=== PATIENT | male | born 1975 | race Caucasian/White ===

== ENCOUNTER 2017-09-08 01:06 | Emergency (ER) | payer OTHER ==
[~2017-09-08] VITALS: Ht 185.4 cm; Wt 118.7 kg
[~2017-09-08 01:06] MED LIST: CIPR-255 PO; LEVE500T PO; LISI10TA PO
[2017-09-08 01:11] VITALS: TEMP 37; Ht 185.4 cm; Wt 118.7 kg
[2017-09-08] MEDS ORDERED: ASPITAB71 PO (01:47)
[2017-09-08] MEDS ORDERED: PHEN-622 PO (01:48)
[2017-09-08] MEDS ORDERED: IBUP-103 PO (01:49)
[2017-09-08] MEDS ORDERED: KETOROLAC TROMETHAMINE 60 MG/2 ML VIAL IM STA (02:28)
[2017-09-08] MEDS ORDERED: BENZONATATE 100MG CAP PO ONE (02:30)
[2017-09-08 03:00] LABS: INFLUENZA B ANTIGEN Neg for Influ B (NEG)
[2017-09-08] MEDS ORDERED: HYDROCODONE/HOMATROPINE SYRUP 5MG/1.5MG 5ML UDP PO STA (03:48)
[2017-09-08] MEDS ORDERED: AZITHROMYCIN 250 MG TAB PO STA (03:48)
[2017-09-08] MEDS ORDERED: HYDR5SYP11 PO (03:51)
[2017-09-08] MEDS ORDERED: AZIT250T PO (03:51)
[2017-09-08 04:01] VITALS: BP 150/81; PULSE 90; O2SAT 93
--- NOTE | 2017-09-08 06:05 | DIAGNOSTIC IMAGING REPORT ---
CHEST 2 VIEWS ROUTINE CLINICAL HISTORY: eval for cough fever. Cough. COMPARISON STUDY: 12/22/2015 FINDINGS: The bones soft tissues and hemidiaphragms are normal. The cardiomediastinal silhouette is normal. The lungs are clear. The pulmonary vasculature is normal. IMPRESSION: Negative chest. The above report was generated using voice recognition software. It may contain grammatical, syntax or spelling errors. Electronically signed by: Chris Stout M.D. 09/08/2017 6:04 AM Dictated Date/Time: 09/08/2017 6:03 AM
--- NOTE | 2017-09-08 07:05 | EMERGENCY ROOM VISIT NOTE ---
History Report prepared by Bonnie: Ruthann Zapata Under the Supervision of: Dr. Bambi Parekh D.O. First contact with patient: 01:41 Chief Complaint: ILLNESS Stated Complaint: SEVERE HEADACHE,TEMP History of Present Illness The patient is a 41 year old male who presents to the Emergency Room with complaints of worsening illness starting 6 days ago. The patient states that he has a cough and has not been able to sleep more than an hour at a time because of it. He complains of headache, sore throat, and a fever. He notes that he has had it as high as 101 and has been taking Advil for it. He reports that he has febrile seizures and wants to make sure it stays down. He notes that he has used ice packs on his shoulders to help as well. The patient notes that he has had swollen feet. He notes that he has had pneumonia and bronchitis years ago. He states that this feels similar to when he had strep throat. The patient denies leg cramping and getting the flu vaccine. He notes that he was a smoker and has been free of it for 2 weeks. The patient notes a history of diverticulitis and hypertension. Source of History: patient Onset: 6 days ago Position: other (global) Quality: other (illness) Timing: worsening Associated Symptoms: + fevers, + headache, + sorethroat, + cough Note: The patient complains of swollen feet. The patient denies leg cramping. Review of Systems See HPI for pertinent positives & negatives. A total of 10 systems reviewed and were otherwise negative. Past Medical & Surgical Medical Problems: (1) Atypical syncope (2) Bipolar 1 disorder (3) Calculus of kidney and ureter (4) Depressive Disorder Nec (5) Diverticular disease of colon (6) Diverticulitis of colon (7) Dyslipidemia (8) Essential hypertension (9) Febrile Convulsions (Simple), Unspecified (10) Hypertension (11) Seizures Surgical Problems: (1) H/O oral surgery (2) s/p phlebectomy varicose vein RLE Family History Cardiac disorder GRANDMOTHER Social History Smoking Status: Former Smoker Alcohol Use: occasionally Drug Use: none Marital Status: Housing Status: lives with family Occupation Status: employed Current/Historical Medications Scheduled Aspirin Effervescent ([place]illian-[place]), 1 TAB PO BID Azithromycin (Zithromax), 250 MG PO DAILY Hydrocodone W/ Homatropine (Hycodan 5/1.5MG 5 Ml), 10 ML PO Q6 Ibuprofen Tab (Advil), 400 MG PO BID Lisinopril (Prinivil), 10 MG PO DAILY Etyrujrocvvzs-Wg-Vv W/ Apap (Vicks Dayquil Severe Cold), 1 TAB PO BID Allergies Coded Allergies: No Known Allergies (Verified , 11/28/16) Physical Exam Vital Signs Date Time Temp Pulse Resp B/P (MAP) Pulse Ox O2 Delivery O2 Flow Rate FiO2 09/08/17 04:01 90 16 150/81 93 09/08/17 01:11 37.0 89 16 172/98 97 Room Air Physical Exam HEENT: Head - normocephalic and atraumatic Pupils are equal, round, and reactive to light. Extraocular eye muscles are intact, and sclera are anicteric. Nose - moist nasal mucosa without discharge. Mouth - moist buccal mucosa. Oropharynx is erythematous and there is no tonsillar exudate or edema noted. Neck: Supple; no JVD, nuchal rigidity, cervical lymphadenopathy. Heart: Regular rate and rhythm. There is a normal S1 and S2 with no murmurs, clicks, or gallops appreciated. Lungs: Clear to auscultation bilaterally with no wheezes, rales, or rhonchi. Abdomen: Soft, completely nontender, nondistended, with good bowel sounds. There are no palpable pulsatile masses or hepatosplenomegaly. There is no guarding, rigidity, or rebound noted. Extremities: No evidence of cyanosis, clubbing, or edema. There are easily palpable peripheral pulses. Skin: warm and dry with good turgor and no rashes. Medical Decision & Procedures ER Provider Diagnostic Interpretation: CHEST X-RAY: The results were interpreted by me. No obvious pulmonary infiltrate or consolidation. Moderate peribronchial cuffing. Laboratory Results Test 09/08/17 01:40 Influenza Type A Antigen Neg for Influ A (NEG) Influenza Type B Antigen Neg for Influ B (NEG) Laboratory results per my review. Medications Administered Medications (Trade) Dose Ordered Sig/Ananya Route Start Time Stop Time Status Last Admin Dose Admin Benzonatate (Tessalon Perles Cap) 100 mg NOW ONCE PO 09/08/17 02:30 09/08/17 02:32 DC 3/17/18 02:48 100 MG Ketorolac Tromethamine (Toradol Inj) 60 mg NOW STAT IM 09/08/17 02:28 09/08/17 02:32 DC 09/08/17 02:48 60 MG Azithromycin (Zithromax Tab) 500 mg NOW STAT PO 09/08/17 03:48 09/08/17 03:49 DC 09/08/17 03:56 500 MG Hydrocodone Bit/ Homatropine Methylb (Hycodan Syrup) 10 ml NOW STAT PO 09/08/17 03:48 09/08/17 03:49 DC 09/08/17 03:56 10 ML Procedure 0228: Ordered Toradol Inj 60 mg IM. 0230: Ordered Benzonatate 100 mg PO. 0348: Ordered Hycodan Syrup 10 ml PO, Azithromycin 500 mg PO. ED Course 0158: Past medical records reviewed. The patient was evaluated in room A12B. A complete history and physical exam was performed. 0228: Ordered Toradol Inj 60 mg IM. 0230: Ordered Benzonatate 100 mg PO. The patient went for chest x-ray as described above. 0328: I reevaluated the patient and he states that his body aches are minimally improved, but his cough has. He is almost asleep. 0348: Ordered Hycodan Syrup 10 ml PO for the patient to take home with him as he had driven here to the emergency department. He was also given Azithromycin 500 mg PO. 0344: Upon reevaluation, the patient is feeling better. I discussed findings and results with him. He verbalized agreement of the treatment plan. The patient was discharged home. Medical Decision The patient is a 41 year old male who presents to the Emergency Room with complaints of worsening illness starting 6 days ago. Differential diagnoses include influenza, pneumonia, bronchitis, strep throat. LABS: Negative Strep Negative Flu This is a 41-year-old male patient who presents to the emergency department with a persistent illness over the past 6 days. Patient describes having diffuse body aches, sore throat, fever and unrelenting cough. This is kept him from sleeping. O2 saturations were stable. Chest x-ray was unremarkable. Influenza testing was negative. Strep testing was negative. He had moderate relief of the body aches with the Toradol. He was given a prescription for Hycodan to use at home for cough at bedtime and I will start the patient on Zithromax as he does have a productive cough and persistent fever for the past 6 days. I have asked the patient to follow-up with his PCP if the symptoms are persisting through Sunday. If symptoms worsen, he should return here to the ER. [place] Drug Monitoring Program Search Results: no issues identified Medication Reconcilliation Current Medication List: was personally reviewed by me Blood Pressure Screening Patient's blood pressure: Elevated blood pressure Blood pressure disposition: Elevated BP felt to be situational Impression Primary Impression: Bronchitis Scribe Attestation The scribe's documentation has been prepared under my direction and personally reviewed by me in its entirety. I confirm that the note above accurately reflects all work, treatment, procedures, and medical decision making performed by me. Departure Information Dispostion Home / Self-Care Prescriptions Hydrocodone W/ Homatropine (HYCODAN 5/1.5MG 5 ML) 1 Syp Syp 10 ML PO Q6 for Cough, #100 ML Prov: Bambi Parekh D.O. 09/08/17 Azithromycin (ZITHROMAX) 250 Mg Tab 250 MG PO DAILY, #4 TAB Prov: Bambi Parekh D.O. 09/08/17 Referrals Bob Fischer M.D. (PCP) Forms HOME CARE DOCUMENTATION FORM, IMPORTANT VISIT INFORMATION, WORK / SCHOOL INSTRUCTIONS Patient Instructions My [facility] Additional Instructions Rest. Take zithromax daily for next 4 days. Hycodan - 10ml every 6 hours for cough. this is a narcotic and can become addictive. Do not drive while taking this med. Return to the ER for worsening symptoms. Follow up on Sunday with the PCP for a recheck if symptoms persist
== END 2017-09-08 04:03 | disposition home or self-care (01) ==
LOC: C.EDB 01:07 → C.EDA 04:03
DX: J40 Bronchitis, not specified as acute or chronic (principal); Z87.01 Personal history of pneumonia (recurrent); I10 Essential (primary) hypertension; Z87.442 Personal history of urinary calculi; Z87.891 Personal history of nicotine dependence; Z98.818 Other dental procedure status; Z98.890 Other specified postprocedural states; Z79.899 Other long term (current) drug therapy

== ENCOUNTER 2017-09-12 10:23 | Emergency (ER) | payer OTHER ==
[~2017-09-12] VITALS: Ht 185.4 cm; Wt 115.3 kg
[~2017-09-12 10:23] MED LIST changes: +ASPITAB71 PO; +AZIT250T PO; -CIPR-255 PO; +HYDR5SYP11 PO; +IBUP-103 PO; -LEVE500T PO; +PHEN-622 PO
[2017-09-12 10:29] VITALS: TEMP 37.2; Ht 185.4 cm; Wt 115.3 kg
[2017-09-12] MEDS ORDERED: METRONIDAZOLE 500MG / 100ML NSS IV STA (10:55)
[2017-09-12] MEDS ORDERED: MoRPHine SULFATE 10 MG/ML CARP/VIAL IV STA (10:55)
[2017-09-12] MEDS ORDERED: CIPROFLOXACIN 400MG / 200ML D5W IV STA (10:55)
[2017-09-12] MEDS ORDERED: ONDANSETRON INJ 2 MG/ML 2 ML VIAL IV STA (10:55)
[2017-09-12] MEDS ORDERED: SODIUM CHLORIDE 0.9% 1000ML 1,000 ML IV STA (10:55)
[2017-09-12] MEDS ORDERED: METRONIDAZOLE 250 MG TAB PO STA (10:57)
[2017-09-12] MEDS ORDERED: CIPROFLOXACIN 250 MG TAB PO ONE (11:00)
[2017-09-12 11:09] LABS: BASO % 0.3 %; BASO ABS # 0.03 K/uL (0-0.2); EOS % 0.9 %; EOS ABS # 0.09 K/uL (0-0.5); HEMATOCRIT 40.9 % (42-52); HEMOGLOBIN 14.7 g/dL (14.0-18.0); IG# 0.02 K/uL (0.00-0.02); LYMPH % 17.9 %; LYMPH ABS # 1.77 K/uL (1.2-3.4); MEAN CELL VOLUME 83.3 fL (80-100); MEAN CORPUSCULAR HEMOGLOBIN 29.9 pg (25-34); MEAN CORPUSCULAR HGB CONC 35.9 g/dl (32-36); MEAN PLATELET VOLUME 8.9 fL (7.4-10.4); MONO % 7.9 %; MONO ABS # 0.78 K/uL (0.11-0.59); NEUT % 72.8 %; NEUT ABS # 7.22 K/uL (1.4-6.5); PLATELET COUNT 176 K/uL (130-400); RED CELL DISTRIBUTION WIDTH CV 12.7 % (11.5-14.5); RED CELL DISTRIBUTION WIDTH SD 38.6 fL (36.4-46.3); WHITE BLOOD COUNT 9.91 K/uL (4.8-10.8)
[2017-09-12 11:30] LABS: ALBUMIN 3.9 gm/dl (3.4-5.0); CREATININE 0.83 mg/dl (0.60-1.40); POTASSIUM 3.9 mmol/L (3.5-5.1)
--- NOTE | 2017-09-12 11:33 | DIAGNOSTIC IMAGING REPORT ---
KUB CLINICAL HISTORY: Left lower quadrant abdominal pain COMPARISON STUDY: CT scan dated 11/29/2016 FINDINGS: There is a 2.5 mm calcification projected over the lower pole the left kidney possibly representing a calculus. There is no pathologic bowel dilatation. Multiple pelvic basin calcifications while nonspecific likely represent phleboliths. IMPRESSION: 1. Left-sided nephrolithiasis 2. No pathologic bowel dilatation 3. Pelvic basin calcifications, likely representing phleboliths. Electronically signed by: Pete Adams M.D. 09/12/2017 11:31 AM Dictated Date/Time: 09/12/2017 11:30 AM
[2017-09-12 11:37] LABS: TOTAL PROTEIN 7.4 gm/dl (6.4-8.2)
[2017-09-12] MEDS ORDERED: DICYCLOMINE HCL 20 MG TAB PO STA (12:20)
[2017-09-12] MEDS ORDERED: TRAMADOL HCL 50 MG TAB PO STA (12:20)
--- NOTE | 2017-09-12 12:22 | EMERGENCY ROOM VISIT NOTE ---
History Report prepared by Bonnie: Nba Wang Under the Supervision of: Dr. Anupam Davenport M.D. 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 Left sided abd pain, diarrhea, nausea. Pt states, "I know I have diverticulitis. I was sent over by Dr. Beauchamp for IV abx." History of Present Illness The patient is a 41 year old white male with a past medical history of bipolar disorder, kidney stone, depression, diverticulitis, HLD, HTN, and seizure who presents to the ED with a cc of constant left sided abdominal pain beginning yesterday. Patient believes he has diverticulitis, and states that he was sent to the ED for IV antibiotics. He has a history of frequent diverticulitis, and has not had a bout in about five months. Pain is improved with sitting in certain positions. Had a small bowel movement earlier today. Positive fevers, chills, nausea. Negative vomiting, bloody stool. Patient has had prior colonoscopies. 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 Source of History: patient Onset: Yesterday Position: abdomen (left sided) Timing: constant Modifying Factors (Relieving): other (sitting in certain positions) Associated Symptoms: + fevers, + chills, + nausea, No vomiting, No hematochezia Review of Systems See HPI for pertinent positives and negatives. A total of ten systems were reviewed and were otherwise negative. Past Medical & Surgical Medical Problems: (1) Atypical syncope (2) Bipolar 1 disorder (3) Calculus of kidney and ureter (4) Depressive Disorder Nec (5) Diverticular disease of colon (6) Diverticulitis of colon (7) Dyslipidemia (8) Essential hypertension (9) Febrile Convulsions (Simple), Unspecified (10) Hypertension (11) Seizures Surgical Problems: (1) H/O oral surgery (2) s/p phlebectomy varicose vein RLE Family History Cardiac disorder GRANDMOTHER Social History Smoking Status: Former Smoker Alcohol Use: occasionally Drug Use: none Marital Status: Housing Status: lives with family Occupation Status: employed Current/Historical Medications Scheduled Aspirin Effervescent (Jillian-[place]), 1 TAB PO BID Azithromycin (Zithromax), 250 MG PO DAILY Ciprofloxacin Hcl (Cipro), 500 MG PO BID Dicyclomine Hcl (Bentyl), 1 CAP PO TID Ibuprofen Tab (Advil), 400 MG PO BID Lisinopril (Prinivil), 10 MG PO DAILY Metronidazole (Flagyl), 500 MG PO TID Equgnhdqpkaou-Tj-Db W/ Apap (Vicks Dayquil Severe Cold), 1 TAB PO BID Scheduled PRN Ondansetron Hcl (Zofran), 1 TAB PO Q4H PRN for Nausea Allergies Coded Allergies: No Known Allergies (Verified , 11/28/16) Physical Exam Vital Signs Date Time Temp Pulse Resp B/P (MAP) Pulse Ox O2 Delivery O2 Flow Rate FiO2 09/12/17 12:30 73 18 127/65 98 Room Air 09/12/17 11:57 73 18 128/71 98 Room Air 09/12/17 11:12 76 18 118/63 96 Room Air 09/12/17 10:29 37.2 82 16 154/82 95 Room Air Physical Exam GENERAL: Awake, alert, well-appearing, NAD HENT: Normocephalic, atraumatic. EYES: Normal conjunctiva. Sclera non-icteric. NECK: Supple. No nuchal rigidity. FROM. RESPIRATORY: CTAB, no rhonchi, wheezing, crackles CARDIAC: RRR, no MRG ABDOMEN: Soft, ND, BS+. LLQ tenderness. Suprapubic discomfort. MSK: No chest wall TTP, no LE edema NEURO: GCS 15, CN 2-12 intact, moves all 4s on command SKIN: No rash or jaundice noted. Medical Decision & Procedures ER Provider Diagnostic Interpretation: Radiology results as stated below per my review and radiologist interpretation: KUB FINDINGS: There is a 2.5 mm calcification projected over the lower pole the left kidney possibly representing a calculus. There is no pathologic bowel dilatation. Multiple pelvic basin calcifications while nonspecific likely represent phleboliths. IMPRESSION: 1. Left-sided nephrolithiasis 2. No pathologic bowel dilatation 3. Pelvic basin calcifications, likely representing phleboliths. Electronically signed by: Pete Adams M.D. 09/12/2017 11:31 AM Laboratory Results 09/12/17 11:00 Red Blood Count 4.91, Mean Corpuscular Volume 83.3, Mean Corpuscular Hemoglobin 29.9, Mean Corpuscular Hemoglobin Concent 35.9, Mean Platelet Volume 8.9, Neutrophils (%) (Auto) 72.8, Lymphocytes (%) (Auto) 17.9, Monocytes (%) (Auto) 7.9, Eosinophils (%) (Auto) 0.9, Basophils (%) (Auto) 0.3, Neutrophils # (Auto) 7.22, Lymphocytes # (Auto) 1.77, Monocytes # (Auto) 0.78, Eosinophils # (Auto) 0.09, Basophils # (Auto) 0.03 09/12/17 11:00 Test 09/12/17 11:00 White Blood Count 9.91 K/uL (4.8-10.8) Red Blood Count 4.91 M/uL (4.7-6.1) Hemoglobin 14.7 g/dL (14.0-18.0) Hematocrit 40.9 % (42-52) Mean Corpuscular Volume 83.3 fL (80-100) Mean Corpuscular Hemoglobin 29.9 pg (25-34) Mean Corpuscular Hemoglobin Concent 35.9 g/dl (32-36) Platelet Count 176 K/uL (130-400) Mean Platelet Volume 8.9 fL (7.4-10.4) Neutrophils (%) (Auto) 72.8 % Lymphocytes (%) (Auto) 17.9 % Monocytes (%) (Auto) 7.9 % Eosinophils (%) (Auto) 0.9 % Basophils (%) (Auto) 0.3 % Neutrophils # (Auto) 7.22 K/uL (1.4-6.5) Lymphocytes # (Auto) 1.77 K/uL (1.2-3.4) Monocytes # (Auto) 0.78 K/uL (0.11-0.59) Eosinophils # (Auto) 0.09 K/uL (0-0.5) Basophils # (Auto) 0.03 K/uL (0-0.2) RDW Standard Deviation 38.6 fL (36.4-46.3) RDW Coefficient of Variation 12.7 % (11.5-14.5) Immature Granulocyte % (Auto) 0.2 % Immature Granulocyte # (Auto) 0.02 K/uL (0.00-0.02) Anion Gap 7.0 mmol/L (3-11) Est Creatinine Clear Calc Drug Dose 154.2 ml/min Estimated GFR () 125.8 Estimated GFR (Non- 108.5 BUN/Creatinine Ratio 20.5 (10-20) Calcium Level 9.0 mg/dl (8.5-10.1) Total Bilirubin 0.7 mg/dl (0.2-1) Direct Bilirubin 0.1 mg/dl (0-0.2) Aspartate Amino Transf (AST/SGOT) 19 U/L (15-37) Alanine Aminotransferase (ALT/SGPT) 37 U/L (12-78) Alkaline Phosphatase 74 U/L (45-117) Total Protein 7.4 gm/dl (6.4-8.2) Albumin 3.9 gm/dl (3.4-5.0) Lipase 144 U/L (73-393) Laboratory results reviewed by me Medications Administered Medications (Trade) Dose Ordered Sig/Ananya Route Start Time Stop Time Status Last Admin Dose Admin Sodium Chloride 1,000 ml @ 999 mls/hr Q1H1M STAT IV 09/12/17 10:55 09/12/17 11:55 DC 09/12/17 11:12 999 MLS/HR Ondansetron HCl (Zofran Inj) 4 mg NOW STAT IV 09/12/17 10:55 09/12/17 10:57 DC 09/12/17 11:11 4 MG Morphine Sulfate (MoRPHine SULFATE INJ) 8 mg NOW STAT IV 09/12/17 10:55 09/12/17 10:57 DC 09/12/17 11:12 8 MG Ciprofloxacin (Ciprofloxacin Tab) 500 mg NOW ONCE PO 09/12/17 11:00 09/12/17 11:01 DC 09/12/17 11:10 500 MG Metronidazole (Flagyl Tab) 500 mg NOW STAT PO 09/12/17 10:57 09/12/17 10:59 DC 09/12/17 11:11 500 MG Tramadol HCl (Ultram Tab) 50 mg NOW STAT PO 09/12/17 12:20 09/12/17 12:31 DC 09/12/17 12:30 50 MG Dicyclomine HCl (Bentyl Tab) 20 mg ONE STAT PO 09/12/17 12:20 09/12/17 12:31 DC 09/12/17 12:40 20 MG ED Course 1038: The patient was evaluated in room C3. A complete history and physical exam was performed. 1220: I reevaluated the patient. Discussed results and discharge instructions: he verbalized understanding and agreement. The patient is ready for discharge. Medical Decision The patient is a 41 year old white male with a past medical history of bipolar disorder, kidney stone, depression, diverticulitis, HLD, HTN, and seizure who presents to the ED with a cc of constant left sided abdominal pain beginning yesterday. Differential diagnosis: Etiologies such as appendicitis, diverticulitis, PUD, biliary pathology, UTI, pancreatitis, obstruction, mesenteric ischemia, aortic pathology, infections, inflammatory bowel disease, renal colic, as well as others were entertained. Prior records reviewed. Patient seen and evaluated at bedside. Patient did state that he has some left lower quadrant discomfort. Patient did have a reported fever at home. Patient states that he does have a history of diverticulitis confirmed on colonoscopy. Patient denies any history of ulcerative colitis or Crohn's disease. Patient has a mild left lower quadrant discomfort and suprapubic pain. Patient does not appear acutely septic. Patient did have blood work completed along with IV fluids and pain control. She was also given Cipro and Flagyl p.o. patient's blood work was fairly unremarkable. White blood cell count was in within normal limits no left shift. Patient did have plain film completed which does not show any overt bowel obstruction. No evidence of free air. I do not believe that the patient requires further imaging. We will treat presumptively based on the patient's history and physical exam for diverticulitis. Patient was given warning signs which to return. Patient was deemed suitable for outpatient follow-up and treatment at this time. Patient was given strict follow-up, discharge, and return precautions. All questions were answered. Patient was deemed suitable for outpatient follow-up at this time. Patient agreed with the plan of care and was safely discharged home. Medication Reconcilliation Current Medication List: was personally reviewed by me Blood Pressure Screening Patient's blood pressure: Normal blood pressure Blood pressure disposition: Did not require urgent referral Impression Primary Impression: Diverticulitis of colon Additional Impressions: Abdominal pain Encounter for smoking cessation counseling Scribe Attestation The scribe's documentation has been prepared under my direction and personally reviewed by me in its entirety. I confirm that the note above accurately reflects all work, treatment, procedures, and medical decision making performed by me. Departure Information Dispostion Home / Self-Care Prescriptions Dicyclomine Hcl (BENTYL) 10 Mg Cap 1 CAP PO TID for 7 Days, #21 CAP 3 Refills Prov: Anupam Davenport M.D. 09/12/17 Ondansetron Hcl (ZOFRAN) 4 Mg Tab 1 TAB PO Q4H Y for Nausea for 3 Days, #20 TAB 2 Refills Prov: Anupam Davenport M.D. 09/12/17 Metronidazole (FLAGYL) 500 Mg Tab 500 MG PO TID for 10 Days, #30 TAB Prov: Anupam Davenport M.D. 09/12/17 Ciprofloxacin Hcl (CIPRO) 500 Mg Tab 500 MG PO BID for 10 Days, #20 TAB Prov: Anupam Davenport M.D. 09/12/17 Referrals No Doctor, Assigned (PCP) Patient Instructions Diverticulitis Josh, My [facility] Additional Instructions Please return to the emergency department if you have worsening or recurrent symptoms not amenable to at-home treatment. Please call for a follow-up appointment with her primary care physician. Please take your medications as prescribed. If you have other concerns and/or complaints please feel free to also call your primary care physician's office or return the ED for further evaluation, management, and treatment. You received narcotic or benzodiazepene medication while in the emergency room today. This is an addictive medication that may cause drowziness as well as constipation. Do not drive, operate heavy machinery, or drink alcohol under the influence of this medication. You may take 600 mg Ibuprofen every 6 hours as needed for pain with food for no more than 2 consecutive days. You may take tylenol 1000 mg every 6 hours as needed for pain. You may take motrin and tylenol separately or at the same time. Take your medications as prescribed. If taking an antibiotic consider taking a probiotic and/or eating yogurt, but at the least, please take with food as it can cause upset stomach. Avoid alcohol while you take Flagyl. Please follow-up with your enrollment services vice president. You have been examined and treated today on an emergency basis only. This is not a substitute for, or an effort to provide, complete comprehensive medical care. It is impossible to recognize and treat all injuries or illnesses in a single emergency department visit. It is therefore important that you follow up closely with [facility], your PCP, and/or your specialist(s). Call as soon as possible for an appointment. Thank you for your time and consideration. I look forward to speaking with you again soon. Please don't hesitate to call us if you have any questions. Problem Qualifiers Additional Impressions: Abdominal pain Abdominal location: left lower quadrant Qualified Codes: R10.32 - Left lower quadrant pain
[2017-09-12] MEDS ORDERED: CIPR-255 PO (12:28)
[2017-09-12] MEDS ORDERED: METR500T PO (12:28)
[2017-09-12] MEDS ORDERED: DICY10CA55 PO (12:28)
[2017-09-12] MEDS ORDERED: ONDA4TAB65 PO (12:28)
[2017-09-12 12:30] VITALS: BP 127/65; PULSE 73; O2SAT 98
== END 2017-09-12 12:43 | disposition home or self-care (01) ==
LOC: C.EDB 10:26 → C.EDC 12:43
DX: K57.32 Diverticulitis of large intestine without perforation or abscess without bleeding (principal); R10.30 Lower abdominal pain, unspecified; N20.0 Calculus of kidney; I10 Essential (primary) hypertension; F31.9 Bipolar disorder, unspecified; G40.909 Epilepsy, unspecified, not intractable, without status epilepticus; Z87.891 Personal history of nicotine dependence; Z79.899 Other long term (current) drug therapy

== ENCOUNTER 2017-10-15 05:25 | Inpatient (IN) | payer OTHER ==
[2017-10-09 11:21] VITALS: BMI 33.0
--- NOTE | 2017-10-09 12:02 | PAT Medication Instructions ---
Service Date Oct 09, 2017. Current Home Medication List Ibuprofen Tab (Advil), 400 MG PO BID PRN for Pain Lisinopril (Prinivil), 10 MG PO QAM Multivitamin (Multivitamin), 1 TAB PO QAM Omeprazole (Prilosec), 20 MG PO DAILY PRN for Heartburn Ondansetron Hcl (Zofran), 1 TAB PO Q4H PRN for Nausea Medication Instructions For Your Scheduled Surgery -Check with your surgeon for instructins for: Ibuprofen Tab (Advil), 400 MG PO BID PRN for Pain - Hold the following medications the morning of surgery: Lisinopril (Prinivil), 10 MG PO QAM Multivitamin (Multivitamin), 1 TAB PO QAM - Take the following medications the morning of surgery with a sip of water: Omeprazole (Prilosec), 20 MG PO DAILY PRN for Heartburn (if needed) Ondansetron Hcl (Zofran), 1 TAB PO Q4H PRN for Nausea (if needed) - Take the following medications as scheduled the night before surgery: Omeprazole (Prilosec), 20 MG PO DAILY PRN for Heartburn (if needed) Ondansetron Hcl (Zofran), 1 TAB PO Q4H PRN for Nausea (if needed) If you have any questions please call us at [phone] or [phone] or [phone]
[~2017-10-15] VITALS: Ht 185.4 cm; Wt 114.7 kg
[2017-10-15] VITALS (9 sets, daily range): BP systolic 126–159; BP diastolic 75–100; PULSE 67–99; TEMP 36.4–36.8; O2SAT 92–98; BMI 33.0
[~2017-10-15 05:25] MED LIST changes: -ASPITAB71 PO; -AZIT250T PO; -HYDR5SYP11 PO; +MULT-506 PO; +ONDA4TAB65 PO; -PHEN-622 PO; +PRLSR20 PO
[2017-10-15] MEDS ORDERED: LACTATED RINGER'S 1000ML 1,000 ML IV SCH (06:00)
[2017-10-15] MEDS ORDERED: CIPROFLOXACIN / D5W 400 MG IV SCH (06:00)
[2017-10-15] MEDS ORDERED: METRONIDAZOLE 500MG / NSS IV SCH (06:00)
[2017-10-15] MEDS ORDERED: MIDAZOLAM HCL 1 MG/ML 2ML VIAL ONE (07:29)
[2017-10-15] MEDS ORDERED: FENTANYL CITRATE INJ 50 MCG/1 ML 2 ML VIAL ONE ×3 (07:31→10:12)
[2017-10-15] MEDS ORDERED: PROPOFOL IV EMULSION 10 MG/ML 20 ML VIAL IV ONE ×2 (07:32→09:13)
[2017-10-15] MEDS ORDERED: LIDOCAINE HCL 1% 20 ML VIAL ONE (07:47)
[2017-10-15] MEDS ORDERED: BUPIVACAINE 0.5 % 5 MG/1 ML MPF 30ML VIAL ONE (07:47)
[2017-10-15] MEDS ORDERED: BACITRACIN OINT 15 GM TUBE ONE (07:47)
--- NOTE | 2017-10-15 08:06 | History & Physical Bridge Note ---
H&P Re-Evaluation Bridge Note: I have examined the patient, reviewed the History & Physical and in the interval since the performance of the History & Physical I have noted the following changes of clinical significance: No changes noted
[2017-10-15] MEDS ORDERED: METRONIDAZOLE 500MG / 100ML NSS IV STA (08:07)
[2017-10-15] MEDS ORDERED: ATROPINE SULFATE 0.1 MG/ML 5ML SYR IV PRN (08:15)
[2017-10-15] MEDS ORDERED: ONDANSETRON INJ 2 MG/ML 2 ML VIAL IV PRN (08:15)
[2017-10-15] MEDS ORDERED: EpHEDrine SULFATE INJ 50 MG/ML AMP IV PRN (08:15)
[2017-10-15] MEDS ORDERED: PHENYLEPHRINE 100MCG/ML 5ML SYR IV PRN (08:15)
[2017-10-15] MEDS ORDERED: MEPERIDINE HCL 25 MG/ML CARP IV PRN (08:15)
[2017-10-15] MEDS ORDERED: LABETALOL HCL IV 5 MG/ML 20ML IV PRN (08:15)
[2017-10-15] MEDS ORDERED: NALOXONE HCL 0.4 MG/1 ML VIAL/CARP IV PRN (08:15)
[2017-10-15] MEDS ORDERED: FLUMAZENIL 0.1 MG/1 ML 10 ML VIAL IV PRN (08:15)
[2017-10-15] MEDS ORDERED: DEXAMETHASONE SOD INJ 4 MG/ML VIAL ONE (09:13)
[2017-10-15] MEDS ORDERED: LIDOCAINE HCL 2% 2 ML VIAL (20MG/ML) ONE (09:13)
[2017-10-15] MEDS ORDERED: ONDANSETRON INJ 2 MG/ML 2 ML VIAL ONE (09:13)
[2017-10-15] MEDS ORDERED: ROCURONIUM BROMIDE 10 MG/ML 5 ML VIAL IV ONE ×2 (09:13→09:23)
[2017-10-15] MEDS ORDERED: NEOSTIGMINE METHYLSULFATE 5 MG/5 ML SYR ONE ×2 (09:13→09:24)
[2017-10-15] MEDS ORDERED: GLYCOPYRROLATE INJ 0.2 MG/ML VIAL ONE ×2 (09:13→09:24)
--- NOTE | 2017-10-15 11:23 | [facility] Post Operative Brief Note ---
Immediate Operative Summary Operative Date Oct 15, 2017. Pre-Operative Diagnosis Diverticulitis of sigmoid colon Post-Operative Diagnosis Same Procedure(s) Performed Open Sigmoid Colon Resection Surgeon Dr Nagel Physical Therapy Assistant Surgeon(s) Shikha Villanueva PA-C Estimated Blood Loss 30ml Findings Consistent with Post-Op Diagnosis Fluids (cc crystalloids) 2500ml Specimens A. sigmoid colon and donuts Drains JPx1 Anesthesia Type General Complication(s) none Disposition Accompanied Pt To Recover: yes Disposition: Recovery Room / PACU
[2017-10-15] MEDS ORDERED: ACETAMINOPHEN 325 MG TAB PO PRN (11:30)
[2017-10-15] MEDS: HYDROmorphone INJ 0.5 MG/0.5 ML SYR IV PRN ×6 (11:49→18:44)
[2017-10-15] MEDS: MoRPHine SULFATE 10 MG/ML CARP/VIAL IV PRN ×2 (12:32→12:42)
--- NOTE | 2017-10-15 12:59 | Anesthesiology Progress Note ---
Anesthesia Post Op Note Date & Time Oct 15, 2017 at 12:58 Vital Signs Pain Intensity: 4 Vital Signs Past 12 Hours Date Time Temp Pulse Resp B/P (MAP) Pulse Ox O2 Delivery O2 Flow Rate FiO2 10/15/17 12:55 84 20 155/99 97 Nasal Cannula 4 10/15/17 12:45 90 16 144/94 97 Nasal Cannula 4 10/15/17 12:35 81 20 150/99 96 Nasal Cannula 4 10/15/17 12:25 36.5 85 16 149/100 100 Nasal Cannula 4 10/15/17 12:15 95 16 152/90 100 Nasal Cannula 4 10/15/17 12:05 84 16 152/96 100 Oxymask 10 10/15/17 11:45 84 16 148/68 100 Oxymask 10 10/15/17 11:38 36.3 107 16 164/102 98 Oxymask 10 10/15/17 05:55 36.6 67 18 144/95 97 Room Air Notes Mental Status: alert / awake / arousable, participated in evaluation Pt Amnestic to Procedure: Yes Nausea / Vomiting: adequately controlled Pain: adequately controlled Airway Patency, RR, SpO2: stable & adequate BP & HR: stable & adequate Hydration State: stable & adequate Anesthetic Complications: no major complications apparent
[2017-10-15] MEDS: D5W AND 1/2NSS + 20MEQ KCL 1,000 ML IV SCH (14:15)
--- NOTE | 2017-10-15 14:45 | OPERATIVE REPORT ---
DATE OF OPERATION: 10/15/2017 PREOPERATIVE DIAGNOSIS: Sigmoid colon diverticulitis. POSTOPERATIVE DIAGNOSIS: Same. OPERATION: Sigmoid colon resection. SURGEON: Dr. Breonna Nagel. ANESTHESIA: General. GENERAL FORECASTER: Shikha Villanueva PA-C IV FLUIDS: 2500 mL. ESTIMATED BLOOD LOSS: About 30 mL. FINDINGS: Sigmoid colon diverticulitis. COMPLICATIONS: None. INDICATIONS FOR THE PROCEDURE: This is a 41-year-old gentleman who presented three times with acute sigmoid colon diverticulitis and the patient will be required to do the sigmoid colon resection. I did talk to the patient about the benefit and risk, alternate procedure. I indicated the risks may include but not limited such as bleeding, infection, anastomosis leak, sepsis, abscess, incisional hernia recurrence, myocardial infarction, DVT, stroke, and even . The patient understands. He signed informed consent and I answered all questions. He agreed to proceed with procedure. DETAILS OF PROCEDURE: We brought the patient to the OR, put the patient in the supine position. The patient received SCD on bilateral legs to prevent DVT. Also, the patient received 400mg Cipro and 500mg Flagyl for prophylactic antibiotic and the patient received general anesthesia without difficulty. Then, we put the patient in lithotomy position. The patient also received Hunter catheter inserted and the abdomen was prepped and draped in routine sterile fashion. After time out, I made a midline incision into the abdomen without difficulty. Then we found out the patient has some inflammation and edema on the sigmoid colon. We mobilized the sigmoid colon laterally and medially. We used 50 mm TIA staple transection of the distal sigmoid colon near the rectum and then I made a window on the mesentery near the descending sigmoid colon and used a EKATERINA staple transection of the colon. Then I used endovascular staple to take down the mesentery. Rechecked, no active bleeding, no leak on the bowel and then I mobilized the splenic flexure of the colon and gives anastomosis. I opened the distal colon and put the 28 mm navail in. I used #2-0 Prolene suture navail intact. First, we used a 25 dilator and dilated the rectum and then used a 29 mm and dilated the rectum. Then I passed the 28 mm EKATERINA stapler and did anastomosis and anastomosis was done easily. No tension and good blood circulation and we used normal saline over the anastomosis and inflated air. No active leak. No leak sign. Then, we suctioned all fluid out. We closed the mesenteric defect by using 2-0 Vicryl interruptedly and hemostasis obtained. Then, I closed. Before we closed, we put the 10 mm MARY drainage in the abdomen. Then, we used a #1 PDS, closed the fascial layer with continuous running, closed subcutaneous layer by using 2-0 Vicryl continuous running, closed the skin by using staple, then we put the dressing on. The patient tolerated the procedure well. All the instrument, needle and sponge counts were correct x2 at the end of the case. The patient transferred to recovery room in stable condition. After procedure, I did talk to the patient and family member about the OR finding and procedure we did. She understands. Also, the specimen sent to pathology. After we did anastomosis, we checked the colon with the two ring and are intact. Also, we sent them to pathology. I attest to the content of the Intraoperative Record and any orders documented therein. Any exceptions are noted below. LISETTE
[2017-10-15] MEDS: MoRPHine SULFATE 4 MG/ML 1 ML CARP\\VIAL IV PRN ×2 (15:27→21:50)
[2017-10-15] MEDS: ONDANSETRON INJ 2 MG/ML 2 ML VIAL IV PRN ×2 (15:33→20:25)
[2017-10-15] MEDS: METRONIDAZOLE / NSS 500 MG in PREMIXED NSS 0 ML IV SCH (15:34)
[2017-10-15] MEDS ORDERED: NURSING VERBAL MED ORDER ONE ×2 (17:00)
[2017-10-15] MEDS ORDERED: MoRPHine SULFATE 4 MG/ML 1 ML CARP\\VIAL IV ONE (17:00)
[2017-10-15] MEDS: METOCLOPRAMIDE HCL INJ 5 MG/ML 2 ML VIAL IV PRN (17:25)
--- NOTE | 2017-10-15 17:57 | Surgery Progress Note ---
Surgery Progress Note Date of Service Oct 15, 2017. Subjective F/U post op, S/P sigmoid colectomy, pt is stable, pt is still have some incision pain, pt denies vomiting, some nausea, Objective Vital Signs: Date Time Temp Pulse Resp B/P (MAP) Pulse Ox O2 Delivery O2 Flow Rate FiO2 10/15/17 16:10 36.5 93 16 159/89 (112) 97 Room Air 10/15/17 14:58 36.4 99 16 155/99 (117) 97 Room Air 10/15/17 14:20 87 16 150/89 (109) 96 Nasal Cannula 4.0 10/15/17 13:50 36.5 88 20 149/100 (116) 95 Nasal Cannula 2.0 10/15/17 13:20 98 Nasal Cannula 4.0 10/15/17 13:20 36.4 89 16 151/92 (111) 98 Nasal Cannula 4.0 10/15/17 13:20 Nasal Cannula 4.0 10/15/17 13:05 36.5 84 20 143/97 96 Nasal Cannula 2 10/15/17 12:55 84 20 155/99 97 Nasal Cannula 4 10/15/17 12:45 90 16 144/94 97 Nasal Cannula 4 10/15/17 12:35 81 20 150/99 96 Nasal Cannula 4 10/15/17 12:25 36.5 85 16 149/100 100 Nasal Cannula 4 10/15/17 12:15 95 16 152/90 100 Nasal Cannula 4 10/15/17 12:05 84 16 152/96 100 Oxymask 10 10/15/17 11:45 84 16 148/68 100 Oxymask 10 10/15/17 11:38 36.3 107 16 164/102 98 Oxymask 10 10/15/17 05:55 36.6 67 18 144/95 97 Room Air General Appearance: WD/WN, no apparent distress Head: normocephalic Neck: supple, thyroid normal Respiratory/Chest: chest non-tender, lungs clear, normal breath sounds Cardiovascular: regular rate, rhythm, no edema, no gallop, no JVD, no murmur Abdomen: normal bowel sounds, non distended, soft, + tenderness Incision(s): clean, dry, intact Extremities: normal range of motion, non-tender, normal inspection Assessment & Plan I update about or finding and the surgery pt had, pt understood, change morphine 4 mg q2 h prn for pain, resume home medicine, repeat labs in am, will f/U
[2017-10-15] MEDS: CIPROFLOXACIN / D5W 400 MG in PREMIXED IN D5W 200 ML IV SCH (18:16)
[2017-10-16] VITALS (7 sets, daily range): BP systolic 128–154; BP diastolic 76–82; PULSE 59–81; TEMP 36.5–36.9; O2SAT 92–99; Ht 185.4 cm; Wt 114.7 kg
[2017-10-16] MEDS: METRONIDAZOLE / NSS 500 MG in PREMIXED NSS 0 ML IV SCH ×2 (00:22→08:24)
[2017-10-16] MEDS: HYDROmorphone INJ 0.5 MG/0.5 ML SYR IV PRN ×3 (00:23→08:25)
[2017-10-16] MEDS: ONDANSETRON INJ 2 MG/ML 2 ML VIAL IV PRN ×6 (00:25→23:48)
[2017-10-16] MEDS: MoRPHine SULFATE 4 MG/ML 1 ML CARP\\VIAL IV PRN ×3 (02:47→15:36)
[2017-10-16] MEDS: D5W AND 1/2NSS + 20MEQ KCL 1,000 ML IV SCH ×2 (04:05→14:07)
[2017-10-16] MEDS ORDERED: NURSING VERBAL MED ORDER ONE (05:00)
[2017-10-16] MEDS ORDERED: CIPROFLOXACIN 400MG / 200ML D5W IV ONE (06:00)
[2017-10-16 06:07] LABS: HEMATOCRIT 38.2 % (42-52); HEMOGLOBIN 13.5 g/dL (14.0-18.0); IG# 0.03 K/uL (0.00-0.02); LYMPH % 16.6 %; LYMPH ABS # 1.35 K/uL (1.2-3.4); MEAN CELL VOLUME 83.8 fL (80-100); MEAN CORPUSCULAR HEMOGLOBIN 29.6 pg (25-34); MEAN CORPUSCULAR HGB CONC 35.3 g/dl (32-36); MEAN PLATELET VOLUME 8.9 fL (7.4-10.4); MONO ABS # 0.81 K/uL (0.11-0.59); NEUT ABS # 5.92 K/uL (1.4-6.5); PLATELET COUNT 255 K/uL (130-400); RED CELL DISTRIBUTION WIDTH CV 12.8 % (11.5-14.5); RED CELL DISTRIBUTION WIDTH SD 38.5 fL (36.4-46.3); WHITE BLOOD COUNT 8.11 K/uL (4.8-10.8)
[2017-10-16] MEDS: CIPROFLOXACIN / D5W 400 MG in PREMIXED IN D5W 200 ML IV SCH ×2 (06:21→18:10)
[2017-10-16 06:39] LABS: ALBUMIN 3.5 gm/dl (3.4-5.0); CALCIUM 8.1 mg/dl (8.5-10.1); CREATININE 0.87 mg/dl (0.60-1.40); POTASSIUM 3.4 mmol/L (3.5-5.1)
[2017-10-16 06:42] LABS: TOTAL PROTEIN 6.7 gm/dl (6.4-8.2)
--- NOTE | 2017-10-16 08:14 | Anesthesiology Progress Note ---
Anesthesia Post Op Note Date & Time Oct 16, 2017 at 08:13 Vital Signs Pain Intensity: 7.0 Vital Signs Past 12 Hours Date Time Temp Pulse Resp B/P (MAP) Pulse Ox O2 Delivery O2 Flow Rate FiO2 10/16/17 02:45 36.6 59 14 133/81 (98) 99 Nasal Cannula 4.0 10/15/17 23:50 93 Room Air 4.0 10/15/17 23:18 36.8 67 14 126/80 (95) 93 Room Air Notes Mental Status: alert / awake / arousable, participated in evaluation Pt Amnestic to Procedure: Yes Nausea / Vomiting: adequately controlled Pain: adequately controlled Airway Patency, RR, SpO2: stable & adequate BP & HR: stable & adequate Hydration State: stable & adequate Anesthetic Complications: no major complications apparent
[2017-10-16] MEDS: METOCLOPRAMIDE HCL INJ 5 MG/ML 2 ML VIAL IV PRN (08:20)
[2017-10-16] MEDS ORDERED: PANTOprazole SOD 40 MG TAB PO PRN (09:00)
[2017-10-16] MEDS: ENOXAPARIN 40 MG/0.4 ML SYR SQ SCH (09:26)
--- NOTE | 2017-10-16 09:35 | Surgery Progress Note ---
Surgery Progress Note Date of Service Oct 16, 2017. Subjective Post OP Day: 1 (s/p ex lap, sigmoid resection with primary anastomosis) + flatus, + pain controlled, No chest pain, No SOB, No bowel movement, No nausea , No vomiting Sore throat from NGT, would really like it removed Hunter catheter removed this am (7 am), has not urinated since but may feel like he needs to soon abdominal pain controlled with pain meds Objective Vital Signs: Date Time Temp Pulse Resp B/P (MAP) Pulse Ox O2 Delivery O2 Flow Rate FiO2 10/16/17 08:15 36.5 63 17 130/76 (94) 98 Nasal Cannula 4.0 10/16/17 02:45 36.6 59 14 133/81 (98) 99 Nasal Cannula 4.0 10/15/17 23:50 93 Room Air 4.0 10/15/17 23:18 36.8 67 14 126/80 (95) 93 Room Air 10/15/17 19:03 36.5 84 16 135/75 (95) 92 Room Air 10/15/17 16:10 36.5 93 16 159/89 (112) 97 Room Air 10/15/17 15:30 Nasal Cannula 4.0 10/15/17 14:58 36.4 99 16 155/99 (117) 97 Room Air 10/15/17 14:20 87 16 150/89 (109) 96 Nasal Cannula 4.0 10/15/17 13:50 36.5 88 20 149/100 (116) 95 Nasal Cannula 2.0 10/15/17 13:20 98 Nasal Cannula 4.0 10/15/17 13:20 36.4 89 16 151/92 (111) 98 Nasal Cannula 4.0 10/15/17 13:20 Nasal Cannula 4.0 10/15/17 13:05 36.5 84 20 143/97 96 Nasal Cannula 2 10/15/17 12:55 84 20 155/99 97 Nasal Cannula 4 10/15/17 12:45 90 16 144/94 97 Nasal Cannula 4 10/15/17 12:35 81 20 150/99 96 Nasal Cannula 4 10/15/17 12:25 36.5 85 16 149/100 100 Nasal Cannula 4 10/15/17 12:15 95 16 152/90 100 Nasal Cannula 4 10/15/17 12:05 84 16 152/96 100 Oxymask 10 10/15/17 11:45 84 16 148/68 100 Oxymask 10 10/15/17 11:38 36.3 107 16 164/102 98 Oxymask 10 Physical Exam: MARY drainage (serosanguineous) General Appearance: WD/WN, no apparent distress Head: normocephalic, atraumatic Neck: trachea midline Respiratory/Chest: no respiratory distress, no accessory muscle use, + wheezing (expiratory) Cardiovascular: regular rate, rhythm, no murmur Abdomen: non distended, soft, no organomegaly, no pulsatile mass, + abnormal bowel sounds (hypoactive bowel sounds), + tenderness (at midline incision and generalized, appropriate post op) Incision(s): clean, dry (dressing clean and dry, some areas of drainage, incision not inspected) Laboratory Results: Results Past 24 Hours Test 10/16/17 05:41 Range/Units White Blood Count 8.11 4.8-10.8 K/uL Red Blood Count 4.56 4.7-6.1 M/uL Hemoglobin 13.5 14.0-18.0 g/dL Hematocrit 38.2 42-52 % Mean Corpuscular Volume 83.8 80-100 fL Mean Corpuscular Hemoglobin 29.6 25-34 pg Mean Corpuscular Hemoglobin Concent 35.3 32-36 g/dl Platelet Count 255 130-400 K/uL Mean Platelet Volume 8.9 7.4-10.4 fL Neutrophils (%) (Auto) 73.0 % Lymphocytes (%) (Auto) 16.6 % Monocytes (%) (Auto) 10.0 % Eosinophils (%) (Auto) 0.0 % Basophils (%) (Auto) 0.0 % Neutrophils # (Auto) 5.92 1.4-6.5 K/uL Lymphocytes # (Auto) 1.35 1.2-3.4 K/uL Monocytes # (Auto) 0.81 0.11-0.59 K/uL Eosinophils # (Auto) 0.00 0-0.5 K/uL Basophils # (Auto) 0.00 0-0.2 K/uL RDW Standard Deviation 38.5 36.4-46.3 fL RDW Coefficient of Variation 12.8 11.5-14.5 % Immature Granulocyte % (Auto) 0.4 % Immature Granulocyte # (Auto) 0.03 0.00-0.02 K/uL Prothrombin Time 11.0 9.0-12.0 SECONDS Prothromb Time International Ratio 1.0 0.9-1.1 Activated Partial Thromboplast Time 25.0 21.0-31.0 SECONDS Partial Thromboplastin Ratio 1.0 Sodium Level 139 136-145 mmol/L Potassium Level 3.4 3.5-5.1 mmol/L Chloride Level 106 98-107 mmol/L Carbon Dioxide Level 29 21-32 mmol/L Anion Gap 4.0 3-11 mmol/L Blood Urea Nitrogen 8 7-18 mg/dl Creatinine 0.87 0.60-1.40 mg/dl Est Creatinine Clear Calc Drug Dose 146.8 ml/min Estimated GFR () 123.4 Estimated GFR (Non- 106.5 BUN/Creatinine Ratio 8.8 10-20 Random Glucose 106 70-99 mg/dl Calcium Level 8.1 8.5-10.1 mg/dl Total Bilirubin 1.0 0.2-1 mg/dl Aspartate Amino Transf (AST/SGOT) 20 15-37 U/L Alanine Aminotransferase (ALT/SGPT) 47 12-78 U/L Alkaline Phosphatase 57 45-117 U/L Total Protein 6.7 6.4-8.2 gm/dl Albumin 3.5 3.4-5.0 gm/dl Globulin 3.2 2.5-4.0 gm/dl Albumin/Globulin Ratio 1.1 0.9-2 Assessment & Plan POD # 1 s/p exploratory laparotomy, sigmoid resection with primary anastomosis -vitals stable, afebrile - NGT with 200 cc output, clear - small amounts of flatus - abdominal pain controlled Plan: Continue current pain management with IV Dilaudid/Morphine prn pain, will add po Percocet Continue IV fluids Continue IV Zofran as needed Discontinue NGT, may have sips and chips today. IF does well will start clears tomorrow Continue MARY drain to bulb suction Encourage incentive spirometry, OOB to chair and ambulation with assistance SCDs, Leopoldox repeat am labs dressing change to start tomorrow Dr. Nagel has seen and examined patient, agrees with above
[2017-10-16] MEDS ORDERED: OXYCODONE/ACETAMINOPHEN 5-325 TAB PO PRN (10:45)
[2017-10-16] MEDS ORDERED: POTASSIUM CHLORIDE 10 MEQ TABCR PO STA (11:42)
[2017-10-16] MEDS: OXYCODONE/ACETAMINOPHEN 5-325 TAB PO PRN ×2 (18:20→23:45)
[2017-10-17] MEDS: D5W AND 1/2NSS + 20MEQ KCL 1,000 ML IV SCH ×3 (01:10→20:19)
[2017-10-17] MEDS: CIPROFLOXACIN / D5W 400 MG in PREMIXED IN D5W 200 ML IV SCH (06:03)
[2017-10-17] MEDS: ONDANSETRON INJ 2 MG/ML 2 ML VIAL IV PRN ×4 (06:13→17:52)
[2017-10-17] MEDS: OXYCODONE/ACETAMINOPHEN 5-325 TAB PO PRN ×3 (06:30→20:19)
[2017-10-17 07:14] LABS: HEMATOCRIT 37.4 % (42-52); HEMOGLOBIN 12.7 g/dL (14.0-18.0); MEAN CELL VOLUME 85.2 fL (80-100); MEAN CORPUSCULAR HEMOGLOBIN 28.9 pg (25-34); MEAN PLATELET VOLUME 8.7 fL (7.4-10.4); PLATELET COUNT 230 K/uL (130-400); RED CELL DISTRIBUTION WIDTH CV 12.9 % (11.5-14.5); RED CELL DISTRIBUTION WIDTH SD 40.3 fL (36.4-46.3); WHITE BLOOD COUNT 7.22 K/uL (4.8-10.8)
[2017-10-17 07:47] LABS: CALCIUM 8.1 mg/dl (8.5-10.1); CREATININE 0.91 mg/dl (0.60-1.40); POTASSIUM 3.8 mmol/L (3.5-5.1)
[2017-10-17 07:56] VITALS: BP 140/76; PULSE 72; TEMP 36.8; O2SAT 95
[2017-10-17] MEDS: LISINOPRIL 10 MG TAB PO SCH (08:46)
[2017-10-17] MEDS: ENOXAPARIN 40 MG/0.4 ML SYR SQ SCH (08:47)
--- NOTE | 2017-10-17 11:26 | Surgery Progress Note ---
Surgery Progress Note Date of Service Oct 17, 2017. Subjective Post OP Day: 2 + feeling well pt is stable, good control pain, no nausea, no vomiting, normal WBC, not pass gas or BM yet, Objective Vital Signs: Date Time Temp Pulse Resp B/P (MAP) Pulse Ox O2 Delivery O2 Flow Rate FiO2 10/17/17 07:56 36.8 72 18 140/76 (97) 95 Nasal Cannula 3.0 10/17/17 07:15 Room Air 10/16/17 23:30 92 Nasal Cannula 4.0 10/16/17 23:01 36.9 70 17 128/78 (95) 92 Nasal Cannula 4.0 10/16/17 15:46 36.7 81 17 154/78 (103) 95 Nasal Cannula 4.0 10/16/17 15:20 96 Nasal Cannula 4.0 10/16/17 12:02 36.8 63 17 140/82 (101) 96 Nasal Cannula 4.0 General Appearance: WD/WN, no apparent distress Head: normocephalic Neck: supple, no JVD Respiratory/Chest: chest non-tender, lungs clear, normal breath sounds Cardiovascular: regular rate, rhythm, no edema, no gallop, no JVD Abdomen: normal bowel sounds, non distended, soft, no organomegaly, + tenderness Incision(s): clean, dry, intact Extremities: normal range of motion, non-tender, normal inspection Laboratory Results: Results Past 24 Hours Test 10/17/17 06:40 Range/Units White Blood Count 7.22 4.8-10.8 K/uL Red Blood Count 4.39 4.7-6.1 M/uL Hemoglobin 12.7 14.0-18.0 g/dL Hematocrit 37.4 42-52 % Mean Corpuscular Volume 85.2 80-100 fL Mean Corpuscular Hemoglobin 28.9 25-34 pg Mean Corpuscular Hemoglobin Concent 34.0 32-36 g/dl RDW Standard Deviation 40.3 36.4-46.3 fL RDW Coefficient of Variation 12.9 11.5-14.5 % Platelet Count 230 130-400 K/uL Mean Platelet Volume 8.7 7.4-10.4 fL Sodium Level 137 136-145 mmol/L Potassium Level 3.8 3.5-5.1 mmol/L Chloride Level 107 98-107 mmol/L Carbon Dioxide Level 26 21-32 mmol/L Anion Gap 4.0 3-11 mmol/L Blood Urea Nitrogen 8 7-18 mg/dl Creatinine 0.91 0.60-1.40 mg/dl Est Creatinine Clear Calc Drug Dose 140.3 ml/min Estimated GFR () 120.1 Estimated GFR (Non- 103.6 BUN/Creatinine Ratio 8.3 10-20 Random Glucose 97 70-99 mg/dl Calcium Level 8.1 8.5-10.1 mg/dl Assessment & Plan I update about or finding and the surgery pt had, pt understood, change morphine 4 mg q2 h prn for pain, resume home medicine, repeat labs in am, will f/U 10/17/17 clear diet OOB will F/U clear liquids I update about or finding and the surgery pt had, pt understood, change morphine 4 mg q2 h prn for pain, resume home medicine, repeat labs in am, will f/U
[2017-10-17 11:35] VITALS: BP 136/82; PULSE 76; TEMP 36.8; O2SAT 97
[2017-10-17 15:01] VITALS: BP 159/92; PULSE 73; TEMP 36.7; O2SAT 91
[2017-10-17] MEDS: HYDROmorphone INJ 0.5 MG/0.5 ML SYR IV PRN ×2 (17:19→17:53)
[2017-10-17] MEDS: METOCLOPRAMIDE HCL INJ 5 MG/ML 2 ML VIAL IV PRN (20:18)
[2017-10-17 23:15] VITALS: BP 117/61; PULSE 73; TEMP 36.7; O2SAT 91
[2017-10-18] MEDS: ONDANSETRON INJ 2 MG/ML 2 ML VIAL IV PRN ×3 (00:02→21:35)
[2017-10-18] MEDS: HYDROmorphone INJ 0.5 MG/0.5 ML SYR IV PRN ×3 (00:03→20:11)
[2017-10-18] MEDS: D5W AND 1/2NSS + 20MEQ KCL 1,000 ML IV SCH ×2 (05:29→15:26)
[2017-10-18] MEDS: OXYCODONE/ACETAMINOPHEN 5-325 TAB PO PRN ×4 (05:29→21:34)
[2017-10-18 07:25] VITALS: BP 121/73; PULSE 79; TEMP 36.7; O2SAT 95
[2017-10-18 07:54] LABS: HEMATOCRIT 36.9 % (42-52); HEMOGLOBIN 12.5 g/dL (14.0-18.0); MEAN CELL VOLUME 85.2 fL (80-100); MEAN CORPUSCULAR HEMOGLOBIN 28.9 pg (25-34); MEAN CORPUSCULAR HGB CONC 33.9 g/dl (32-36); MEAN PLATELET VOLUME 8.6 fL (7.4-10.4); PLATELET COUNT 214 K/uL (130-400); RED CELL DISTRIBUTION WIDTH CV 12.8 % (11.5-14.5); RED CELL DISTRIBUTION WIDTH SD 39.8 fL (36.4-46.3); WHITE BLOOD COUNT 6.28 K/uL (4.8-10.8)
[2017-10-18 08:28] LABS: CREATININE 0.87 mg/dl (0.60-1.40)
[2017-10-18] MEDS: LISINOPRIL 10 MG TAB PO SCH (08:36)
[2017-10-18] MEDS: ENOXAPARIN 40 MG/0.4 ML SYR SQ SCH (08:36)
--- NOTE | 2017-10-18 11:40 | Surgery Progress Note ---
Surgery Progress Note Date of Service Oct 18, 2017. Subjective Post OP Day: 3 + feeling well pt is doing better, passed some gas, no BM yet, pt denies nausea, no vomiting, no fever. MARY 20 ml Objective Vital Signs: Date Time Temp Pulse Resp B/P (MAP) Pulse Ox O2 Delivery O2 Flow Rate FiO2 10/18/17 08:00 Room Air 10/18/17 07:25 36.7 79 17 121/73 (89) 95 Nasal Cannula 2.0 10/17/17 23:51 Room Air 10/17/17 23:15 36.7 73 16 117/61 (79) 91 Room Air 10/17/17 15:25 Room Air 10/17/17 15:01 36.7 73 18 159/92 (114) 91 Room Air General Appearance: WD/WN, no apparent distress Head: normocephalic Neck: supple, no JVD Respiratory/Chest: chest non-tender, lungs clear Cardiovascular: regular rate, rhythm, no edema, no gallop, no JVD, no murmur Abdomen: normal bowel sounds, non tender, non distended, soft, no organomegaly Incision(s): clean, dry, intact Extremities: normal range of motion, non-tender, normal inspection Laboratory Results: Results Past 24 Hours Test 10/18/17 07:33 Range/Units White Blood Count 6.28 4.8-10.8 K/uL Red Blood Count 4.33 4.7-6.1 M/uL Hemoglobin 12.5 14.0-18.0 g/dL Hematocrit 36.9 42-52 % Mean Corpuscular Volume 85.2 80-100 fL Mean Corpuscular Hemoglobin 28.9 25-34 pg Mean Corpuscular Hemoglobin Concent 33.9 32-36 g/dl RDW Standard Deviation 39.8 36.4-46.3 fL RDW Coefficient of Variation 12.8 11.5-14.5 % Platelet Count 214 130-400 K/uL Mean Platelet Volume 8.6 7.4-10.4 fL Creatinine 0.87 0.60-1.40 mg/dl Est Creatinine Clear Calc Drug Dose 146.8 ml/min Estimated GFR () 123.4 Estimated GFR (Non- 106.5 Assessment & Plan I update about or finding and the surgery pt had, pt understood, change morphine 4 mg q2 h prn for pain, resume home medicine, repeat labs in am, will f/U 10/17/17 clear diet OOB will F/U 10/18/17 continue clear diet, OOB D/C MARY tomorrow, possible D/C home in 1-2 days, will F/U clear liquids I update about or finding and the surgery pt had, pt understood, change morphine 4 mg q2 h prn for pain, resume home medicine, repeat labs in am, will f/U 10/17/17 clear diet OOB will F/U
[2017-10-18 15:41] VITALS: BP 136/87; PULSE 60; TEMP 36.7; O2SAT 94
[2017-10-18 22:50] VITALS: BP 123/76; PULSE 62; TEMP 36.6; O2SAT 94
[2017-10-19] MEDS: D5W AND 1/2NSS + 20MEQ KCL 1,000 ML IV SCH ×3 (01:32→23:39)
[2017-10-19] MEDS: HYDROmorphone INJ 0.5 MG/0.5 ML SYR IV PRN ×3 (01:33→23:40)
[2017-10-19] MEDS: ONDANSETRON INJ 2 MG/ML 2 ML VIAL IV PRN ×3 (01:33→15:40)
[2017-10-19 07:25] LABS: HEMATOCRIT 36.8 % (42-52); HEMOGLOBIN 12.8 g/dL (14.0-18.0); MEAN CELL VOLUME 84.8 fL (80-100); MEAN CORPUSCULAR HEMOGLOBIN 29.5 pg (25-34); MEAN CORPUSCULAR HGB CONC 34.8 g/dl (32-36); MEAN PLATELET VOLUME 8.4 fL (7.4-10.4); PLATELET COUNT 227 K/uL (130-400); RED CELL DISTRIBUTION WIDTH CV 12.8 % (11.5-14.5); RED CELL DISTRIBUTION WIDTH SD 39.3 fL (36.4-46.3); WHITE BLOOD COUNT 5.87 K/uL (4.8-10.8)
[2017-10-19 07:31] VITALS: BP 155/93; PULSE 60; TEMP 36.6; O2SAT 94
[2017-10-19 07:53] LABS: CALCIUM 8.2 mg/dl (8.5-10.1); CREATININE 0.87 mg/dl (0.60-1.40); POTASSIUM 3.9 mmol/L (3.5-5.1)
[2017-10-19] MEDS: ENOXAPARIN 40 MG/0.4 ML SYR SQ SCH (07:53)
[2017-10-19] MEDS: OXYCODONE/ACETAMINOPHEN 5-325 TAB PO PRN ×3 (07:53→19:46)
[2017-10-19] MEDS: LISINOPRIL 10 MG TAB PO SCH (07:54)
[2017-10-19] MEDS ORDERED: OXYC-57 PO (08:28)
[2017-10-19] MEDS ORDERED: ONDA4TAB10 SL (10:41)
--- NOTE | 2017-10-19 10:47 | Discharge Instructions ---
Discharge Instructions Date of Service Oct 19, 2017. Admission Reason for Admission: Diverticulitis Discharge Discharge Diagnosis / Problem: same Discharge Goals Goal(s): Decrease discomfort, Improve function Activity Recommendations Activity Limitations: per Instructions/Follow-up section No heavy lifting over 10 pounds for 6 weeks No strenuous activity until cleared by surgeon No submerging incision underwater for 2 weeks (no bathing, swimming, or hot tubs ) No driving while taking narcotic pain medication or until you are pain free . Instructions / Follow-Up Instructions / Follow-Up You may shower when you get home. Gently clean incision with soap and water Surgical amy will be remove in office in a few weeks Walking and light activity is encouraged to prevent blood clots from forming You will be given prescription for narcotic pain medication as needed for moderate to severe pain. This medication may make you drowsy and can cause constipation. To combat constipation, drink plenty of water daily, take OTC stool softener such as Colace, and may take gentle laxative or prune juice if needed. Follow-up in surgical office on Sunday, please call office at [phone] to make an appointment Current Hospital Diet Patient's current hospital diet: Full Liquid Diet Discharge Diet Recommended Diet: Low Fiber Diet Procedures Procedures Performed: Open Sigmoid Colon Resection Pending Studies Studies pending at discharge: no Medical Emergencies . Who to Call and When: Medical Emergencies: If at any time you feel your situation is an emergency, please call 911 immediately. . Non-Emergent Contact Non-Emergency issues call your: Primary Care Provider, Surgeon Call Non-Emergent contact if: you have a fever, temperature is above 101, your pain is not controlled, your pain is worsening, your pain is unusual for you, wound has increased drainage, wound has increased redness, wound has increased pain . "Provider Documentation" section prepared by Shikha Villanueva. . [place] Drug Monitoring Program Search Results: patient reviewed within database, no issues identified
--- NOTE | 2017-10-19 10:50 | Surgery Progress Note ---
Surgery Progress Note Date of Service Oct 19, 2017. Subjective Post OP Day: 4 (s/p ex lap sigmoid resection with primary anastomosis) + feeling well, + bowel movement, + flatus, + pain controlled, + diet (full liquids), No complaints, No chest pain, No SOB, No nausea, No vomiting Objective Vital Signs: Date Time Temp Pulse Resp B/P (MAP) Pulse Ox O2 Delivery O2 Flow Rate FiO2 10/19/17 07:31 36.6 60 18 155/93 (113) 94 Room Air 10/19/17 00:09 Room Air 10/18/17 22:50 36.6 62 16 123/76 (92) 94 Room Air 10/18/17 16:00 Room Air 10/18/17 15:41 36.7 60 16 136/87 (103) 94 Room Air Physical Exam: MARY drainage (serosanguineous) General Appearance: WD/WN, no apparent distress Head: normocephalic, atraumatic Neck: trachea midline Respiratory/Chest: no respiratory distress, no accessory muscle use Abdomen: non distended, soft, no organomegaly, no pulsatile mass, + tenderness (at midline incision) Incision(s): clean, dry, intact, no erythema, no drainage, ecchymosis Laboratory Results: Results Past 24 Hours Test 10/19/17 07:12 Range/Units White Blood Count 5.87 4.8-10.8 K/uL Red Blood Count 4.34 4.7-6.1 M/uL Hemoglobin 12.8 14.0-18.0 g/dL Hematocrit 36.8 42-52 % Mean Corpuscular Volume 84.8 80-100 fL Mean Corpuscular Hemoglobin 29.5 25-34 pg Mean Corpuscular Hemoglobin Concent 34.8 32-36 g/dl RDW Standard Deviation 39.3 36.4-46.3 fL RDW Coefficient of Variation 12.8 11.5-14.5 % Platelet Count 227 130-400 K/uL Mean Platelet Volume 8.4 7.4-10.4 fL Sodium Level 138 136-145 mmol/L Potassium Level 3.9 3.5-5.1 mmol/L Chloride Level 107 98-107 mmol/L Carbon Dioxide Level 28 21-32 mmol/L Anion Gap 3.0 3-11 mmol/L Blood Urea Nitrogen 5 7-18 mg/dl Creatinine 0.87 0.60-1.40 mg/dl Est Creatinine Clear Calc Drug Dose 146.8 ml/min Estimated GFR () 123.4 Estimated GFR (Non- 106.5 BUN/Creatinine Ratio 5.6 10-20 Random Glucose 97 70-99 mg/dl Calcium Level 8.2 8.5-10.1 mg/dl Assessment & Plan POD # 4 s/p exploratory laparotomy, sigmoid resection with primary anastomosis -vitals stable, afebrile - abdominal pain controlled - + bowel function Plan: Continue current pain management with IV Dilaudid/Morphine prn pain, will add po Percocet Full liquids advance to low fiber tomorrow am , if tolerates well may discharge home tomorrow morning Continue IV fluids, decrease rate to 75 mls/hr Continue IV Zofran as needed Continue MARY drain to bulb suction, d/c prior to discharge Encourage incentive spirometry, OOB to chair and ambulation with assistance SCDs, Lovejimenezx Dr. Nagel has seen and examined patient, agrees with above
[2017-10-19 15:03] VITALS: BP 138/86; PULSE 67; TEMP 37.2; O2SAT 96
[2017-10-19 22:49] VITALS: BP 137/85; PULSE 68; TEMP 36.9; O2SAT 95
[2017-10-20] MEDS: OXYCODONE/ACETAMINOPHEN 5-325 TAB PO PRN ×2 (02:01→09:59)
--- NOTE | 2017-10-20 06:50 | Surgery Progress Note ---
Surgery Progress Note Date of Service Oct 20, 2017. Subjective Post OP Day: 5 + feeling well, + ambulating, + bowel movement, + flatus, + pain controlled, + diet (Tolerating low-fiber diet), No complaints, No nausea, No vomiting Objective Vital Signs: Date Time Temp Pulse Resp B/P (MAP) Pulse Ox O2 Delivery O2 Flow Rate FiO2 10/19/17 23:25 Room Air 10/19/17 22:49 36.9 68 18 137/85 (102) 95 Room Air 10/19/17 15:30 Room Air 10/19/17 15:03 37.2 67 18 138/86 (103) 96 Room Air 10/19/17 07:31 36.6 60 18 155/93 (113) 94 Room Air 10/19/17 07:30 Room Air Physical Exam: MARY drainage (95ml/30ml, serosang) General Appearance: WD/WN, no apparent distress Head: normocephalic, atraumatic Respiratory/Chest: no respiratory distress, no accessory muscle use Abdomen: non tender, non distended, soft, no organomegaly, + tenderness ( Incisional) Incision(s): clean, dry, intact, no erythema, no drainage Laboratory Results: Results Past 24 Hours Test 10/19/17 07:12 Range/Units White Blood Count 5.87 4.8-10.8 K/uL Red Blood Count 4.34 4.7-6.1 M/uL Hemoglobin 12.8 14.0-18.0 g/dL Hematocrit 36.8 42-52 % Mean Corpuscular Volume 84.8 80-100 fL Mean Corpuscular Hemoglobin 29.5 25-34 pg Mean Corpuscular Hemoglobin Concent 34.8 32-36 g/dl RDW Standard Deviation 39.3 36.4-46.3 fL RDW Coefficient of Variation 12.8 11.5-14.5 % Platelet Count 227 130-400 K/uL Mean Platelet Volume 8.4 7.4-10.4 fL Sodium Level 138 136-145 mmol/L Potassium Level 3.9 3.5-5.1 mmol/L Chloride Level 107 98-107 mmol/L Carbon Dioxide Level 28 21-32 mmol/L Anion Gap 3.0 3-11 mmol/L Blood Urea Nitrogen 5 7-18 mg/dl Creatinine 0.87 0.60-1.40 mg/dl Est Creatinine Clear Calc Drug Dose 146.8 ml/min Estimated GFR () 123.4 Estimated GFR (Non- 106.5 BUN/Creatinine Ratio 5.6 10-20 Random Glucose 97 70-99 mg/dl Calcium Level 8.2 8.5-10.1 mg/dl Assessment & Plan POD #5 s/p ex lap, sigmoid colectomy w/ primary anastamosis covering for [facility] general surgery. Doing well, Abdomen soft, non-distended, mild incisional tenderness. Tolerating low-fiber diet, No N/V. +flatus, +BM. Probable d/c today if he continues to do well. Instructions and medications in chart. Leave drain for now - will most likely pull prior to d/c. Will discuss findings with Dr. Venegas. Please contact with questions or concerns.
[2017-10-20 07:15] VITALS: BP 138/82; PULSE 61; TEMP 36.5; O2SAT 93
[2017-10-20] MEDS: LISINOPRIL 10 MG TAB PO SCH (09:55)
[2017-10-20] MEDS: ENOXAPARIN 40 MG/0.4 ML SYR SQ SCH (09:56)
[2017-10-20 10:21] VITALS: BP 138/82; PULSE 61; TEMP 36.5; O2SAT 93
--- NOTE | 2017-10-22 12:40 | Discharge Summary ---
Discharge Summary Dates Admission Date / Time: Oct 15, 2017 at 11:28 Discharge Date: Oct 20, 2017 Dispostion / Condition Discharge Disposition: Home Condition at Discharge: Good Principal Diagnosis (1) Diverticular disease of colon Problem List (1) Essential hypertension (2) Calculus of kidney and ureter (3) Dyslipidemia (4) Bronchitis (5) Seizures (6) Headache (7) Bipolar 1 disorder Consultations / Procedures Consultations: None Procedures: Exploratory laparotomy, sigmoid resection with primary anastomosis Vaccinations: None Pending Studies / Follow-Up None Medication Reconciliation New Medications: Ondasetron Odt (Zofran Odt) 4 Mg Tab 4 MG SL Q6H for Nausea, #30 TAB Oxycodone/Acetaminophen 5MG/325MG (Percocet 5MG/325MG) Tab 1-2 TABLETS PO Q4H PRN for Pain, #30 TAB Continued Medications: Ibuprofen Tab (Advil) 200 Mg Tab 400 MG PO BID PRN for Pain, TAB Lisinopril (Prinivil) 10 Mg Tab 10 MG PO QAM, TAB Multivitamin (Multivitamin) Tab 1 TAB PO QAM, TAB Omeprazole (Prilosec) 20 Mg Capcr 20 MG PO DAILY PRN for Heartburn, CAP Ondansetron Hcl (Zofran) 4 Mg Tab 1 TAB PO Q4H PRN for Nausea for 3 Days, #20 TAB 2 Refills Admission HPI Per the Admitting provider: Patient presented to [facility] for elective outpatient sigmoid resection due to recurrent diverticulitis. Hospital Course (1) Diverticular disease of colon Patient was taken to operating room for ex lap,sigmoid resection with primary anastomosis. Patient tolerated procedure well without any complications. Patient was transferred to medical/surgical floor for post operative care in stable condition. Post op orders included IV fluids, post op IV antibiotics, IV Dilaudid prn pain, IV Zofran prn nausea, NGT to LIS, MARY drain to bulb suction , Hunter to gravity, activity as tolerated, SCDs, incentive spirometry, and subcutaneous Lovenox. POD # 1 patient was doing well, wanted NGT removed causing sore throat, no return of bowel function, pain controlled, no nausea or vomiting. NGT with 200 cc output. NGT removed and started on sips and chips. POD # 2 patient passing flatus, no bowel movement. Diet advanced to clear liquids. POD # 3 , still no bowel movement but passing flatus. Clear diet was continued. POD # 4 patient had a bowel movement and flatus. Ambulating and urinating without difficulty. Diet was advanced to full liquids and low fiber for the next morning. POD # 5 patient tolerated low fiber diet. Pain controlled. NO nausea or vomiting. Patient was discharged home on POD # 5 in stable condition. MARY drain was removed prior to discharge. Discharge Instructions as given to patient Copies To Primary Care Provider: Bob Fischer M.D..
== END 2017-10-20 11:15 | disposition home or self-care (01) | DRG 331 ==
LOC: C.ACU 05:25 → C.MSN 11:28 → ENRESERV 12:12
PROVIDERS: ADMIT Surgery; ATTEND Surgery
PROC: 0DTN0ZZ Resection of Sigmoid Colon, Open Approach (ICD-10-PCS; principal; 2017-10-15 07:00)
DX: K57.32 Diverticulitis of large intestine without perforation or abscess without bleeding (principal); I10 Essential (primary) hypertension; Z79.899 Other long term (current) drug therapy

== ENCOUNTER 2017-10-27 00:12 | Emergency (ER) | payer OTHER ==
[~2017-10-27] VITALS: Ht 185.4 cm; Wt 110.5 kg
[~2017-10-27 00:12] MED LIST changes: +ONDA4TAB10 SL; +OXYC-57 PO
[2017-10-27 00:18] VITALS: TEMP 36.9; Ht 185.4 cm; Wt 110.5 kg
[2017-10-27] MEDS ORDERED: SODIUM CHLORIDE 0.9% 500ML 500 ML IV STA (00:31)
[2017-10-27] MEDS ORDERED: KETOROLAC TROMETHAMINE 30 MG/ML VIAL IV STA (00:31)
--- NOTE | 2017-10-27 00:36 | EMERGENCY ROOM VISIT NOTE ---
History Report prepared by Bonnie: Reji Tom Under the Supervision of: Dr. Sydni Vargas D.O. First contact with patient: 00:22 Chief Complaint: KIDNEY STONE Stated Complaint: KIDNEY STONE History of Present Illness The patient is a 42 year old male who presents to the Emergency Room with complaints of constant left-sided flank pain beginning today. The patient states that he recently had a colon resection. He notes that his incision is healing well, and believes that his current pain is related to a kidney stone instead of his procedure. He reports that he took two Percocet today at around 1600 with mild relief of his symptoms. He also complains of an occasional pain that shoots down to his scrotum. He denies any vomiting, fever, changes to his bowels, and chills. The patient states that he has a previous history of kidney stones, and notes that his current pain feels similar. He reports that he was not able to pass his last kidney stones on his own. The patient states that nothing changes his pain. He notes that he had two drinks tonight at his birthday green party. Source of History: patient Onset: today Position: other (left-sided flank) Timing: constant Modifying Factors (Relieving): other (Percocet ) Associated Symptoms: No fevers, No chills, No vomiting Note: The patient also complains of a pain that shoots down to his scrotum. He denies any changes to his bowels. Review of Systems See HPI for pertinent positives & negatives. A total of 10 systems reviewed and were otherwise negative. Past Medical & Surgical Medical Problems: (1) Atypical syncope (2) Bipolar 1 disorder (3) Calculus of kidney and ureter (4) Depressive Disorder Nec (5) Diverticular disease of colon (6) Diverticulitis of colon (7) Dyslipidemia (8) Essential hypertension (9) Febrile Convulsions (Simple), Unspecified (10) Hypertension (11) Kidney stone (12) S/P sigmoid colectomy (13) Seizures Surgical Problems: (1) H/O oral surgery (2) History of bowel resection (3) s/p phlebectomy varicose vein RLE Family History Cardiac disorder GRANDMOTHER Social History Smoking Status: Former Smoker Alcohol Use: occasionally Drug Use: none Marital Status: Housing Status: lives with family Occupation Status: employed Current/Historical Medications Scheduled Lisinopril (Prinivil), 10 MG PO QAM Multivitamin (Multivitamin), 1 TAB PO QAM Tamsulosin Hcl (Flomax), 0.4 MG PO DAILY Scheduled PRN Ibuprofen Tab (Advil), 400 MG PO BID PRN for Pain Omeprazole (Prilosec), 20 MG PO DAILY PRN for Heartburn Ondansetron Hcl (Zofran), 4 MG SL Q6 PRN for Nausea Oxycodone/Acetaminophen 5MG/325MG (Percocet 5MG/325MG), 1-2 TABLETS PO Q4H PRN for Pain Allergies Coded Allergies: No Known Allergies (Verified , 10/27/17) Physical Exam Vital Signs Date Time Temp Pulse Resp B/P (MAP) Pulse Ox O2 Delivery O2 Flow Rate FiO2 10/27/17 02:47 92 22 135/81 96 Room Air 10/27/17 02:15 79 20 124/76 99 Room Air 10/27/17 00:42 77 10/27/17 00:18 36.9 80 18 160/97 98 Room Air Physical Exam GENERAL: alert, well appearing, well nourished, no distress, non-toxic EYE EXAM: normal conjunctiva, PERRL and EOM's grossly intact OROPHARYNX: no exudate, no erythema, lips, buccal mucosa, and tongue normal and mucous membranes are moist NECK: supple, no nuchal rigidity, no adenopathy, non-tender LUNGS: Clear to auscultation. Normal chest wall mechanics HEART: no murmurs, S1 normal and S2 normal ABDOMEN: abdomen soft, normo-active bowel sounds, no masses, no rebound or guarding. Healing midline incision, amy intact, no drainage or bleeding, no surrounding erythema, mild tenderness around incision, abdomen otherwise nontender. BACK: Back is symmetrical on inspection and there is no deformity, no midline tenderness, no CVA tenderness. Mild reproducible left lower back pain. SKIN: no rashes and no bruising UPPER EXTREMITIES: upper extremities are grossly normal. LOWER EXTREMITIES: No pitting edema. NEURO EXAM: Normal sensorium, cranial nerves II-XII grossly intact, normal speech, no gross weakness of arms, no gross weakness of legs. Medical Decision & Procedures ER Provider Diagnostic Interpretation: Radiology results have been interpreted by the radiologist and reviewed by me. CT ABDOMEN & PELVIS Without Contrast: Mild left hydronephrosis with a 5mm calcification identified at the UPJ. The unenhanced liver, decompressed gallbladder, pancreas, spleen, and adrenals are unremarkable. Findings consistent with recent bowel surgery with postsurgical changes in the region of the sigmoid colon. Superficial skin amy anterior abdominal wall at the midline. Small amount of pneumoperitoneum underlies the left hemidiaphragm, please correlate with surgical history. No free fluid or bowel obstruction. Incidental 4.5cm cyst posterior cortex mid right kidney. Radiologist: Fredy De Los Santos MD. Laboratory Results 10/27/17 00:41 Red Blood Count 4.81, Mean Corpuscular Volume 84.8, Mean Corpuscular Hemoglobin 28.7, Mean Corpuscular Hemoglobin Concent 33.8, Mean Platelet Volume 8.9, Neutrophils (%) (Auto) 47.2, Lymphocytes (%) (Auto) 41.2, Monocytes (%) (Auto) 9.5, Eosinophils (%) (Auto) 1.7, Basophils (%) (Auto) 0.4, Neutrophils # (Auto) 2.54, Lymphocytes # (Auto) 2.21, Monocytes # (Auto) 0.51, Eosinophils # (Auto) 0.09, Basophils # (Auto) 0.02 10/27/17 00:41 Test 10/27/17 00:41 10/27/17 02:50 White Blood Count 5.37 K/uL (4.8-10.8) Red Blood Count 4.81 M/uL (4.7-6.1) Hemoglobin 13.8 g/dL (14.0-18.0) Hematocrit 40.8 % (42-52) Mean Corpuscular Volume 84.8 fL (80-100) Mean Corpuscular Hemoglobin 28.7 pg (25-34) Mean Corpuscular Hemoglobin Concent 33.8 g/dl (32-36) Platelet Count 230 K/uL (130-400) Mean Platelet Volume 8.9 fL (7.4-10.4) Neutrophils (%) (Auto) 47.2 % Lymphocytes (%) (Auto) 41.2 % Monocytes (%) (Auto) 9.5 % Eosinophils (%) (Auto) 1.7 % Basophils (%) (Auto) 0.4 % Neutrophils # (Auto) 2.54 K/uL (1.4-6.5) Lymphocytes # (Auto) 2.21 K/uL (1.2-3.4) Monocytes # (Auto) 0.51 K/uL (0.11-0.59) Eosinophils # (Auto) 0.09 K/uL (0-0.5) Basophils # (Auto) 0.02 K/uL (0-0.2) RDW Standard Deviation 39.0 fL (36.4-46.3) RDW Coefficient of Variation 12.8 % (11.5-14.5) Immature Granulocyte % (Auto) 0.0 % Immature Granulocyte # (Auto) 0.00 K/uL (0.00-0.02) Anion Gap 5.0 mmol/L (3-11) Est Creatinine Clear Calc Drug Dose 111.8 ml/min Estimated GFR () 93.8 Estimated GFR (Non- 80.9 BUN/Creatinine Ratio 14.5 (10-20) Calcium Level 8.8 mg/dl (8.5-10.1) Total Bilirubin 0.3 mg/dl (0.2-1) Aspartate Amino Transf (AST/SGOT) 23 U/L (15-37) Alanine Aminotransferase (ALT/SGPT) 75 U/L (12-78) Alkaline Phosphatase 96 U/L (45-117) Total Protein 7.9 gm/dl (6.4-8.2) Albumin 3.9 gm/dl (3.4-5.0) Globulin 4.0 gm/dl (2.5-4.0) Albumin/Globulin Ratio 1.0 (0.9-2) Urine Color YELLOW Urine Appearance CLOUDY (CLEAR) Urine pH 5.0 (4.5-7.5) Urine Specific Jack 1.024 (1.000-1.030) Urine Protein TRACE (NEG) Urine Glucose (UA) NEG (NEG) Urine Ketones NEG (NEG) Urine Occult Blood 3+ (NEG) Urine Nitrite NEG (NEG) Urine Bilirubin NEG (NEG) Urine Urobilinogen NEG (NEG) Urine Leukocyte Esterase NEG (NEG) Urine WBC (Auto) 1-5 /hpf (0-5) Urine RBC (Auto) >30 /hpf (0-4) Urine Hyaline Casts (Auto) 1-5 /lpf (0-5) Urine Epithelial Cells (Auto) 0-5 /lpf (0-5) Urine Bacteria (Auto) NEG (NEG) Laboratory results per my review. Medications Administered Medications (Trade) Dose Ordered Sig/Ananya Route Start Time Stop Time Status Last Admin Dose Admin Sodium Chloride 500 ml @ 999 mls/hr Q31M STAT IV 10/27/17 00:31 10/27/17 01:01 DC 10/27/17 00:42 999 MLS/HR Ketorolac Tromethamine (Toradol Inj) 30 mg NOW STAT IV 10/27/17 00:31 10/27/17 00:33 DC 10/27/17 00:43 30 MG Ondansetron HCl (Zofran Inj) 4 mg NOW STAT IV 10/27/17 01:01 10/27/17 01:02 DC 10/27/17 01:15 4 MG Tamsulosin HCl (Flomax Cap) 0.4 mg NOW ONCE PO 10/27/17 01:30 10/27/17 01:31 DC 10/27/17 01:28 0.4 MG Sodium Chloride 1,000 ml @ 999 mls/hr Q1H1M STAT IV 10/27/17 01:52 10/27/17 02:52 DC 10/27/17 01:52 999 MLS/HR Acetaminophen (Tylenol Tab) 1,000 mg NOW STAT PO 10/27/17 01:52 10/27/17 01:53 DC 10/27/17 02:14 1,000 MG Oxycodone HCl (Roxicodone Immediate Rel Tab) 5 mg NOW STAT PO 10/27/17 01:59 10/27/17 02:01 DC 10/27/17 02:14 5 MG ED Course 0026: The patient was evaluated in room A3. A complete history and physical exam was performed. 0031: Toradol Inj 30mg IV, Sodium Chloride 500 ml @ 999 mls/hr IV 0101: Zofran Inj 4mg IV 0130: Flomax Cap 0.4mg PO 0152: Tylenol Tab 1000mg PO 0159: Oxycodone HCl 5mg PO 0200: I reevaluated and updated the patient. Medical Decision Differential diagnosis: Etiologies such as renal colic, appendicitis, diverticulitis, mesenteric ischemia, aortic pathology, infections, inflammatory bowel disease, PUD, biliary pathology, UTI, as well as others were entertained. Patient several times as the nurse specifically for additional narcotics here, including Dilaudid specifically. Patient here never appeared in any significant distress, is resting comfortably in bed, was not tachycardic, diaphoretic, moved with ease. Discussed with patient that he does have a 5 mm kidney stone and it will need close follow-up. Added Flomax to his regimen. Patient stated he did have Percocet as well as Zofran at home. Patient given additional Toradol and initially Tylenol here, OxyIR added than here given the patient already had the Tylenol at that time. Patient was told that he was given narcotics however it was not Dilaudid patient became increasingly agitated and upset and began to make threatening statements that he was going to "go to the [employer] call 911 and go to [place]". 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 Given the patient was so well-appearing here, nobody has additional narcotics at home, I do not feel he required additional doses of IV narcotic medication. Patient exhibiting drug-seeking behavior in my opinion. I do not suspect any additional complications related to his recent surgery, or additional GI pathology. No evidence of bacteremia/sepsis, no evidence of renal dysfunction. Patient afebrile here and tolerating p.o. at bedside. Patient stated he already had a urology appointment scheduled for next week, advised him to call Sunday and see if there was a way could perhaps be moved up. I do not feel patient warranted any emergent urologic intervention at this time. Patient has had kidney stones in the past. Discussed with patient symptoms to watch and return for, he verbalized understanding was agreeable with plan. After I had discharge this patient was attempting to leave, I received a call from nursing staff that he was becoming increasingly agitated about not receiving any additional IV pain medication was making threatening statements to staff. [place] Drug Monitoring Program Search Results: patient reviewed within database Drug Monitoring Findings: The patient received a prescription for Percocet that was filled 10/20/2017. Quantity: 30. Medication Reconcilliation Current Medication List: was personally reviewed by me Blood Pressure Screening Patient's blood pressure: Elevated blood pressure Blood pressure disposition: Elevated BP felt to be situational Impression Primary Impression: Ureteral calculus Additional Impressions: Left flank pain Renal colic Scribe Attestation The scribe's documentation has been prepared under my direction and personally reviewed by me in its entirety. I confirm that the note above accurately reflects all work, treatment, procedures, and medical decision making performed by me. Departure Information Dispostion Home / Self-Care Prescriptions Tamsulosin Hcl (FLOMAX) 0.4 Mg Cap 0.4 MG PO DAILY, #10 CAP Prov: Sydni Vargas Mark, DO 10/27/17 Referrals No Doctor, Assigned (PCP) Patient Instructions My [facility] Additional Instructions Please drink plenty of water to stay well-hydrated. You may continue using your home Percocet as previously advised. Please use the Flomax daily until you past the kidney stone or otherwise instructed by urology. Please call your urologist as soon as possible to arrange close follow-up. He may also use the Zofran you have at home for any nausea related to your pain. If you are unable to urinate, noticed feliz blood in your urine, develop fevers, vomiting, worsening pain, you have any other new concerns, please return the emergency room. Please otherwise follow with your postoperative instructions were given at discharge by her surgeon. Problem Qualifiers
[2017-10-27] MEDS ORDERED: ONDA4TAB46 SL (00:47)
[2017-10-27] MEDS ORDERED: OXYC-57 PO (00:48)
[2017-10-27 00:50] LABS: BASO % 0.4 %; BASO ABS # 0.02 K/uL (0-0.2); EOS % 1.7 %; EOS ABS # 0.09 K/uL (0-0.5); HEMATOCRIT 40.8 % (42-52); HEMOGLOBIN 13.8 g/dL (14.0-18.0); LYMPH % 41.2 %; LYMPH ABS # 2.21 K/uL (1.2-3.4); MEAN CELL VOLUME 84.8 fL (80-100); MEAN CORPUSCULAR HEMOGLOBIN 28.7 pg (25-34); MEAN CORPUSCULAR HGB CONC 33.8 g/dl (32-36); MEAN PLATELET VOLUME 8.9 fL (7.4-10.4); MONO % 9.5 %; MONO ABS # 0.51 K/uL (0.11-0.59); NEUT % 47.2 %; NEUT ABS # 2.54 K/uL (1.4-6.5); PLATELET COUNT 230 K/uL (130-400); RED CELL DISTRIBUTION WIDTH CV 12.8 % (11.5-14.5); WHITE BLOOD COUNT 5.37 K/uL (4.8-10.8)
[2017-10-27] MEDS ORDERED: ONDANSETRON INJ 2 MG/ML 2 ML VIAL IV STA (01:01)
[2017-10-27 01:20] LABS: ALBUMIN 3.9 gm/dl (3.4-5.0); CALCIUM 8.8 mg/dl (8.5-10.1); CREATININE 1.11 mg/dl (0.60-1.40); POTASSIUM 3.5 mmol/L (3.5-5.1)
[2017-10-27 01:22] LABS: TOTAL PROTEIN 7.9 gm/dl (6.4-8.2)
[2017-10-27] MEDS ORDERED: TAMSULOSIN HCL 0.4 MG CAP PO ONE (01:30)
[2017-10-27] MEDS ORDERED: SODIUM CHLORIDE 0.9% 1000ML 1,000 ML IV STA (01:52)
[2017-10-27] MEDS ORDERED: ACETAMINOPHEN 500 MG TAB PO STA (01:52)
[2017-10-27] MEDS ORDERED: OXYCODONE HCL IR 5 MG TAB (IMMEDIATE RELEASE) PO STA (01:59)
[2017-10-27 02:47] VITALS: BP 135/81; PULSE 92; O2SAT 96
[2017-10-27] MEDS ORDERED: TAMS0.4C38 PO (02:47)
--- NOTE | 2017-10-27 06:23 | DIAGNOSTIC IMAGING REPORT ---
ABD/PELVIS NO IV OR ORAL CONT CLINICAL HISTORY: 42 years-old Male presenting with left flank pain, hx stones; recent ex lap for colon resection. TECHNIQUE: Multidetector CT of the abdomen and pelvis was performed without the use of intravenous contrast. IV contrast: None. A dose lowering technique was used consistent with the principles of ALARA (as low as reasonably achievable). COMPARISON: 11/29/2016. CT DOSE (mGy.cm): The estimated cumulative dose is 979.67 mGy.cm. 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 Lung bases: Minimal basilar opacities, likely atelectasis. Normal heart size. Coronary artery calcification. No pericardial or pleural effusion. Liver: Normal morphology. Normal density. Biliary: No gross biliary ductal dilatation allowing for noncontrast technique. Gallbladder decompressed. Pancreas: Normal noncontrast appearance. Spleen: Normal noncontrast appearance. Adrenal glands: Normal noncontrast appearance. Kidneys and ureters: Well-defined hypodensity in the posterior interpolar region of the right kidney measuring nearly 5 cm, likely simple cyst. Minimal left pelvocaliectasis with an obstructing or partially obstructing 6 mm calculus in the proximal left ureter at the level of L4. No additional renal or ureteral calculus. Right ureter normal. Bladder: Normal. Pelvic organs: Prostate enlargement likely secondary to benign prostatic hyperplasia. Bowel: Postsurgical changes of partial sigmoidectomy with a colocolonic anastomosis in the left lower quadrant. Few foci of extraluminal gas adjacent to the anastomosis. Minimal inflammatory change is likely expected postsurgical. Suture margin noted in the mesentery with mild fascial thickening, likely also expected. No bowel obstruction. The appendix is normal. Peritoneal cavity: Few small foci of pneumoperitoneum consistent with recent surgical history. No free intraperitoneal fluid. No focal fluid collection. Lymph nodes: No gross lymphadenopathy allowing for noncontrast technique. Vasculature: Atherosclerosis of the normal caliber abdominal aorta. Abdominal wall: Midline skin amy in the ventral abdomen. Minimal inflammatory change consistent with expected postsurgical findings. Musculoskeletal: Normal. IMPRESSION: 1. Obstructing or partially obstructing 6 mm calculus in the proximal left ureter at the level of L4 with resultant mild left hydronephrosis. No additional renal or ureteral calculus. 2. Postsurgical changes of partial sigmoidectomy with a colocolonic anastomosis in the left lower quadrant. Expected postsurgical findings without convincing evidence of an anastomotic leak. Expected postsurgical trace pneumoperitoneum. No evidence of complication. Electronically signed by: Bob Balderrama M.D. 10/27/2017 6:22 AM Dictated Date/Time: 10/27/2017 6:14 AM
== END 2017-10-27 03:07 | disposition home or self-care (01) ==
LOC: C.EDB 00:13 → C.EDA 03:07
DX: N20.2 Calculus of kidney with calculus of ureter (principal); N23 Unspecified renal colic; R10.9 Unspecified abdominal pain

== ENCOUNTER 2022-04-18 14:34 | Inpatient (IN) ==
[2022-04-18] MEDS ORDERED: oxyCODONE/ACETAMINOPHEN 5mg/325mg TAB PO STA (15:42)
--- NOTE | 2022-04-18 15:47 | Emergency Department Note ---
History of Present Illness General Chief complaint: Leg Injury/Pain Stated complaint: THIGH AND FOOT INJURY Time Seen by Provider: 04/18/22 15:37 History of Present Illness This is a 46-year-old male who presents with right foot pain and swelling secondary to an injury to the foot that occurred prior to arrival. He states an 1800 pound cow accidentally stepped on his foot. The pain is becoming very severe now and he feels like his foot was cut off. Sometimes the pain will radiate up into his leg. He has not been able to put any weight on the foot since being in the emergency department. He took 2 naproxen early this morning before this incident occurred, has not taken anything since the injury occurred. Does endorse some numbness in his toes. Denies any prior injuries or surgeries to this foot. History of ankylosing spondylitis. Home Medications Medication Instructions Recorded Confirmed Type lisinopril 10 1 tab PO DAILY 08/08/18 04/18/22 History mg-hydrochlorothiazide 12.5 mg tablet pantoprazole 40 mg tablet,delayed 40 mg PO DAILY PRN 08/08/18 04/18/22 History release HEARTBURN/INDIGESTION ondansetron HCl 4 mg tablet 4 mg PO Q8H PRN NAUSEA/VOMITING 07/15/21 04/18/22 History etanercept 50 mg/mL (1 mL) 50 mg subcut WK 04/18/22 04/18/22 History subcutaneous pen injector (Enbrel SureClick) famotidine 20 mg tablet 20 mg PO BID PRN 04/18/22 04/18/22 History HEARTBURN/INDIGESTION naproxen 500 mg tablet 500 mg PO BID PRN Pain 04/18/22 04/18/22 History Allergies Allergy/AdvReac Type Severity Reaction Status Date / Time No Known Allergies Allergy Verified 04/18/22 18:11 Past Med/Surg History Medical History (Updated 04/18/22 @ 19:23 by Rebecca Benjamin PA-C) Ankylosing spondylitis Bipolar 1 disorder Diverticulosis Hypertension Kidney stones Seizures Ventral hernia with bowel obstruction Surgical History H/O oral surgery History of bowel resection Family History (Updated 04/18/22 @ 19:23 by Rebecca Benjamin PA-C) Other Cancer Hypertension Social History Smoking Status: Never smoker Preferred Language: Albanian Feels Safe at Home: Yes Review of Systems See HPI for pertinent positives & negatives. and A total of 10 systems reviewed and were otherwise negative Physical Exam Vital Signs Vital Signs - 24 hr 04/18/22 15:01 04/18/22 15:59 04/18/22 17:20 Temperature 98.1 F Temperature Source Temporal Artery Scan Pulse Rate 82 Pulse Rate [Left Finger] Respiratory Rate 18 18 Respiratory Effort / Characteristics Non-Labored Spontaneous Respiratory Depth Normal Respiratory Pattern Regular Blood Pressure 180/92 H Blood Pressure [Left Arm] Blood Pressure Mean 121 Blood Pressure Mean [Left Arm] Blood Pressure Position Sitting Pulse Oximetry 94 96 100 Oxygen Delivery Method Room Air Room Air Room Air Sepsis Recent Fever Within 48 Hours No Sepsis New/Unexplained Change in Mental Status N/A Sepsis Action Taken by Nursing No Action Required 04/18/22 18:27 04/18/22 18:50 Temperature 98.1 F Temperature Source Oral Pulse Rate 76 Pulse Rate [Left Finger] 77 Respiratory Rate 19 20 Respiratory Effort / Characteristics Non-Labored Spontaneous Respiratory Depth Normal Respiratory Pattern Regular Blood Pressure 197/101 H Blood Pressure [Left Arm] 155/90 H Blood Pressure Mean Blood Pressure Mean [Left Arm] 111 Blood Pressure Position Pulse Oximetry 98 99 Oxygen Delivery Method Room Air Room Air Sepsis Recent Fever Within 48 Hours Sepsis New/Unexplained Change in Mental Status Sepsis Action Taken by Nursing CONSTITUTIONAL: Well developed, well nourished, appears to be in significant pain, unable to find a comfortable position. HEAD: Normocephalic, atraumatic. ENT: External ears normal. Nose normal, no congestion. NECK: Full active range of motion. RESPIRATORY: Breathing unlabored and symmetric. Lungs clear to auscultation bilaterally. No wheeze, rales, or rhonchi. CARDIOVASCULAR: Regular rate and rhythm. No murmurs, rubs, or gallops. DP and PT Doppler signals obtained in right foot, unable to palpate pulses likel y secondary to edema. MUSCULOSKELETAL: Right lower extremity: There is significant edema and ecchymosis about the dorsal midfoot. This is very firm and significantly tender. Patient able to barely move toes. No ankle tenderness. SKIN: [place], warm, dry. Capillary refill less than 2 seconds in bilateral toes NEUROLOGIC: Awake, alert, oriented. Gaze is conjugate. Face symmetric. Sensation is intact in bilateral lower extremities distal to injury to light touch PSYCHIATRIC: Aside from acute distress from pain, otherwise appropriate Course Administered Medications Discontinued Medications Acetaminophen (Acetaminophen 500 Mg Tab) 1,000 mg PO NOW STA Stop: 04/18/22 16:52 Last Admin: 04/18/22 17:04 Dose: 1,000 mg Documented By: RAYMOND Cefazolin Sodium (Cefazolin 2,000 Mg/15 Ml Iv Push) Confirm Administered Dose 2,000 mg IV .STK-MED ONE Stop: 04/18/22 19:05 Last Admin: 04/18/22 19:06 Dose: 2,000 mg Documented By: [id number] Cefazolin Sodium (Cefazolin 1,000 Mg/7.5 Ml Iv Push) Confirm Administered Dose 1,000 mg IV .STK-MED ONE Stop: 04/18/22 19:05 Last Admin: 04/18/22 19:06 Dose: 1,000 mg Documented By: [id number] Hydromorphone HCl (Hydromorphone Inj 1 Mg/Ml Syringe) 1 mg IM NOW STA Stop: 04/18/22 17:01 Last Admin: 04/18/22 17:13 Dose: Not Given Documented By: RAYMOND Hydromorphone HCl (Hydromorphone Inj 1 Mg/Ml Syringe) 1 mg IV NOW STA Stop: 04/18/22 17:04 Last Admin: 04/18/22 17:04 Dose: 1 mg Documented By: RAYMOND Sodium Chloride (Nss 1000ml) 500 mls @ 999 mls/hr IV .Q31M ONE Stop: 04/18/22 17:33 Last Infusion: 04/18/22 18:39 Dose: 0 mls/hr Documented By: Admin: 04/18/22 17:13 Dose: 999 mls/hr Documented By: RAYMOND Oxycodone/Acetaminophen (Oxycodone/Acetaminophen 5mg/325mg Tab) 2 tab PO NOW STA Stop: 04/18/22 15:43 Last Admin: 04/18/22 15:54 Dose: 2 tab Documented By: RAYMOND Medical Decision Making Differential Diagnosis Contusion, hematoma, fracture, crush injury, neurovascular injury, compartment syndrome, sprain, strain, dissociation, laceration, among other pathology Medical Records Attestation: I reviewed the patient's medical records. Laboratory Data Result diagrams: 04/18/22 17:15 04/18/22 17:15 Lab Results 04/18/22 04/18/22 Range/Units 17:15 17:15 WBC 6.17 (4.8-10.8) K/ul RBC 4.84 (4.63-6.08) M/uL Hgb 14.2 (14.0-18.0) g/dl Hct 40.3 (40.1-51.0) % MCV 83.3 (80.0-100.0) fL MCH 29.3 (25.0-34.0) pg MCHC 35.2 (32.0-36.0) g/dL RDW Std Deviation 38.4 (36.4-46.3) fL RDW Coeff of Tiffani 12.7 (11.5-14.5) % Plt Count 239 (130-400) K/uL MPV 9.5 (9.4-12.4) fL Immature Gran % (Auto) 0.3 % Neut % (Auto) 51.4 % Lymph % (Auto) 36.5 % George % (Auto) 10.0 % Eos % (Auto) 1.3 % Baso % (Auto) 0.5 % Neut # (Auto) 3.17 (1.4-6.5) K/uL Lymph # (Auto) 2.25 (1.2-3.4) K/uL George # (Auto) 0.62 (0.24-0.82) K/uL Eos # (Auto) 0.08 (0-0.50) K/uL Baso # (Auto) 0.03 (0-0.2) K/uL Immature Gran # (Auto) 0.02 (0.00-0.02) K/uL Sodium 138 (136-145) mmol/L Potassium 3.7 (3.5-5.1) mmol/L Chloride 104 (98-107) mmol/L Carbon Dioxide 26 (21-32) mmol/L Anion Gap 8 (3-11) BUN 15 (6-23) mg/dl Creatinine 0.79 (0.6-1.4) mg/dl Est Cr Clr Drug Dosing Not Reportable Est GFR ( Amer) 123.9 ml/min Est GFR (Non-Af Amer) 106.9 ml/min BUN/Creatinine Ratio 19.0 (10-20) Glucose 87 (70-99(Fasting)) mg/dl Calcium 9.2 (8.5-10.1) mg/dl Total Bilirubin 0.7 (0.2-1.0) mg/dl AST 23 (13-39) U/L ALT 26 (7-52) U/L Alkaline Phosphatase 65 (34-104) U/L Total Creatine Kinase 136 (30-223) U/L Total Protein 6.9 (6.0-8.3) gm/dl Albumin 4.3 (3.4-5.0) gm/dl Globulin 2.6 (2.5-4.0) gm/dl Albumin/Globulin Ratio 1.7 (0.9-2) Imaging Data Attestation: I personally reviewed and interpreted this imaging study as follows: My Impression: I agree with the radiologist's interpretation Radiologist's Impression: Foot X-Ray 04/18/22 15:42 XR foot RT min 3V routine CLINICAL HISTORY: top of foot stepped on by cow COMPARISON: CT of the right ankle January 11, 2012. FINDINGS: Alignment of the right foot is anatomic. Tarsometatarsal joints are intact. No acute fracture is identified. Lateral view demonstrates marked dorsal forefoot soft tissue swelling. No osseous lesions are noted. Mild posterior calcaneal spurring is present. IMPRESSION: 1. No acute fracture or dislocation within the right foot. 2. Marked dorsal forefoot soft tissue swelling. ACT 112: Negative or not required by law. Electronically signed by: Shaq Luu M.D. 04/18/2022 5:00 PM [facility] Narrative 46-year-old male presents with a crush injury secondary to an 1800 pound cattle stepping on his foot. On initial exam, patient does appear to be in significant pain unable to find a comfortable position, stating that the pain is radiating up into his leg. He has impressive soft tissue swelling over the dorsum of the midfoot and this compartment is firm to touch. Unable to palpate pulses in this foot, did obtain Doppler signals in DP and PT regions. He has good capillary refill. Initial pain control with 10 mg oxycodone p.o. and 1000 mg Tylenol, this was not sufficient in controlling his pain so he received 1 mg IV Dilaudid. X-ray is negative for fracture. High suspicion for compartment syndrome so discussed case with ED attending Dr. Uribe who evaluated the patient at bedside and agreed this was worth pursuing. I then spoke with Dr. Torres (podiatry) who evaluated the patient at bedside. After thorough evaluation, he would like to take patient to the OR to check pressures and if they are elevated we will perform the fasciotomy. He will be admitted for observation by Dr. Burt. Impression & Plan Crush injury of right foot Discharge Plan Visit Data Chief Complaint: Leg Injury/Pain Stated Complaint: THIGH AND FOOT INJURY ED Provider: Chris Uribe ED Midlevel Provider: Alan Childs Discharge Problem: Crush injury of right foot Patient Disposition: Admitted As Inpatient Condition: Fair Discharge Instructions Interventions: ED Discharge Assessment Last Done: 04/18/22 18:27 : Crush injury of right foot Qualifiers: Encounter type: initial encounter Qualified Code(s): S97.81XA - Crushing injury of right foot, initial encounter
[2022-04-18] MEDS ORDERED: ACETAMINOPHEN 500 MG TAB PO STA (16:51)
[2022-04-18] MEDS ORDERED: HYDROmorphone INJ 1 MG/ML SYRINGE IM STA (17:00)
--- NOTE | 2022-04-18 17:01 | XRay Report ---
XR foot RT min 3V routine CLINICAL HISTORY: top of foot stepped on by cow COMPARISON: CT of the right ankle January 11, 2012. FINDINGS: Alignment of the right foot is anatomic. Tarsometatarsal joints are intact. No acute fract ure is identified. Lateral view demonstrates marked dorsal forefoot soft tissue swelling. No osseous lesions are noted. Mild posterior calcaneal spurring is present. IMPRESSION: 1. No acute fracture or dislocation within the right foot. 2. Marked dorsal forefoot soft tissue swelling. ACT 112: Negative or not required by law. Electronically signed by: Shaq Luu M.D. 04/18/2022 5:00 PM
[2022-04-18] MEDS ORDERED: SODIUM CHLORIDE 0.9% 1000ML 500 ML IV ONE (17:03)
[2022-04-18] MEDS ORDERED: HYDROmorphone INJ 1 MG/ML SYRINGE IV STA (17:03)
--- NOTE | 2022-04-18 17:34 | Emergency Department Note ---
ED Visit Note Physician Evaluation Note: Patient was seen in conjunction with the midlevel provider. Please see the midlevel provider note for full details of the patient's visit. I have personally evaluated and examined this patient. Patient presented to the ED with an injury to the right foot after it was stepped on by a large cattle. Patient has significant swelling and contusion of the right foot with severe pain on my assessment. Capillary refill is intact on my assessment in the digits of the right foot. I can not palpate a pulse in the right lower extremity secondary to the patient's edema/swelling. On my examination the patient is in distress secondary to a significant amount of pain in the right foot. Given the crush mechanism of the injury I do have concern for the possibility of early compartment syndrome. On-call podiatry, Dr. Torres, was consulted to evaluate the patient and he did evaluate the patient at the bedside. It was determined the patient was appropriate for operative intervention and he was transferred to the operating room to the care of Dr. Torres in stable condition for definitive care. I agree with assessment and plan of AL Thornton DO . : Crush injury of right foot Qualifiers: Encounter type: initial encounter Qualified Code(s): S97.81XA - Crushing injury of right foot, initial encounter
[2022-04-18 17:55] LABS: Basophils # (auto) 0.03 K/uL (0-0.2); Basophils % (auto) 0.5 %; Eosinophils # (auto) 0.08 K/uL (0-0.50); Eosinophils % (auto) 1.3 %; Hematocrit (blood only) 40.3 % (40.1-51.0); Hemoglobin 14.2 g/dl (14.0-18.0); Immature Granulocytes # (auto) 0.02 K/uL (0.00-0.02); Immature Granulocytes % (auto) 0.3 %; Lymphocytes # (auto) 2.25 K/uL (1.2-3.4); Lymphocytes % (auto) 36.5 %; Mean Corpuscular Hemoglobin 29.3 pg (25.0-34.0); Mean Corpuscular Hgb Conc 35.2 g/dL (32.0-36.0); Mean Corpuscular Volume 83.3 fL (80.0-100.0); Mean Platelet Volume 9.5 fL (9.4-12.4); Monocytes # (auto) 0.62 K/uL (0.24-0.82); Neutrophils # (auto) 3.17 K/uL (1.4-6.5); Neutrophils % (auto) 51.4 %; Platelet Count 239 K/uL (130-400); RDW Coefficient of Variation 12.7 % (11.5-14.5); RDW Standard Deviation 38.4 fL (36.4-46.3); Red Blood Count 4.84 M/uL (4.63-6.08); White Blood Count 6.17 K/ul (4.8-10.8)
[2022-04-18] MEDS ORDERED: PROPOFOL IV EMULSION 10 MG/ML 20 ML VIAL IV ONE ×2 (18:22→19:48)
[2022-04-18] MEDS ORDERED: fentaNYL citrate 100 MCG/2 ML VIAL ONE ×3 (18:22→20:26)
[2022-04-18] MEDS ORDERED: ONDANSETRON INJ 2 MG/ML 2 ML VIAL ONE (18:22)
[2022-04-18] MEDS ORDERED: HYDROmorphone INJ 1 MG/ML SYRINGE IV PRN (18:22)
[2022-04-18] MEDS ORDERED: ONDANSETRON INJ 2 MG/ML 2 ML VIAL IV PRN (18:22)
[2022-04-18] MEDS ORDERED: DEXAMETHASONE SOD INJ 4 MG/ML VIAL ONE (18:22)
[2022-04-18] MEDS ORDERED: MIDAZOLAM HCL 1 MG/ML 2ML VIAL ONE (18:22)
[2022-04-18] MEDS ORDERED: ATROPINE SULFATE 0.1 MG/ML 10ML SYR IV PRN (18:22)
[2022-04-18] MEDS ORDERED: ePHEDrine sulfate 50 MG/ML AMP IV PRN (18:22)
[2022-04-18] MEDS ORDERED: LIDOCAINE 2% MPF LOCAL 5 ML VIAL INFIL ONE (18:22)
[2022-04-18] MEDS ORDERED: ROCURONIUM BROMIDE 10 MG/ML 5 ML VIAL IV ONE (18:22)
[2022-04-18] MEDS ORDERED: SUCCINYLCHOLINE CHLORIDE 20 MG/ML 10 ML VIAL IV ONE (18:22)
--- NOTE | 2022-04-18 18:22 | Anesthesiology Consultation ---
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 History Allergies Allergy/AdvReac Type Severity Reaction Status Date / Time No Known Allergies Allergy Verified 04/18/22 18:11 Medications Home Medications Medication Instructions Recorded Confirmed Last Taken lisinopril 10 1 tab PO DAILY 08/08/18 04/18/22 04/18/22 mg-hydrochlorothiazide 12.5 mg tablet pantoprazole 40 mg tablet,delayed 40 mg PO DAILY PRN 08/08/18 04/18/22 07/15/21 release HEARTBURN/INDIGESTION ondansetron HCl 4 mg tablet 4 mg PO Q8H PRN NAUSEA/VOMITING 07/15/21 04/18/22 Unknown etanercept 50 mg/mL (1 mL) 50 mg subcut WK 04/18/22 04/18/22 04/11/22 subcutaneous pen injector (Enbrel SureClick) famotidine 20 mg tablet 20 mg PO BID PRN 04/18/22 04/18/22 Unknown HEARTBURN/INDIGESTION naproxen 500 mg tablet 500 mg PO BID PRN Pain 04/18/22 04/18/22 Unknown Past Medical History Medical History Ankylosing spondylitis Bipolar 1 disorder Diverticulosis Hypertension Kidney stones Seizures Ventral hernia with bowel obstruction Past Family History Family History Other No pertinent family history in first degree relatives Past Surgical History Surgical History H/O oral surgery History of bowel resection Social History Smoking Status: Never smoker Physical Exam Vital Signs Last Vital Signs Temp 98.1 F 04/18/22 15:01 Pulse 82 04/18/22 15:01 Resp 18 04/18/22 15:59 BP 180/92 H 04/18/22 15:01 Pulse Ox 100 04/18/22 17:20 O2 Del Method 04/18/22 17:20 Testing Laboratory Results 04/18/22 17:15
[2022-04-18 18:27] LABS: Alanine Aminotransferase 26 U/L (7-52); Albumin Globulin Ratio 1.7 (0.9-2); Albumin Level 4.3 gm/dl (3.4-5.0); Alkaline Phosphatase 65 U/L (34-104); Anion Gap 8 (3-11); Aspartate Aminotransferase 23 U/L (13-39); Bilirubin,Total 0.7 mg/dl (0.2-1.0); Blood Urea Nitrogen 15 mg/dl (6-23); Calcium 9.2 mg/dl (8.5-10.1); Carbon Dioxide 26 mmol/L (21-32); Chloride 104 mmol/L (98-107); Creatine Kinase 136 U/L (30-223); Est GFR (African American) 123.9 ml/min; Est GFR (Non-African American) 106.9 ml/min; Globulin 2.6 gm/dl (2.5-4.0); Glucose 87 mg/dl (70-99(Fasting)); Potassium 3.7 mmol/L (3.5-5.1); Sodium 138 mmol/L (136-145); Total Protein 6.9 gm/dl (6.0-8.3)
--- NOTE | 2022-04-18 18:43 | History & Physical Report ---
Date of Service April 18, 2022 Assessment & Plan (1) Crush injury of right foot: (2) Ankylosing spondylitis: (3) Bipolar 1 disorder: (4) Hypertension: (5) Seizures: Plan This is a 46-year-old male with PMH of hypertension, ankylosing spondylitis, inflammatory polyarthritis, history of bipolar disorder and depression, seizure disorder and other medical problems listed below who presents with R foot pain after 1,800 lb bull stepped on his foot this afternoon. Crush injury right foot Hemodynamically stable Pain intractable despite multiple rounds of pain medication in ED Initial CK WNL. Repeat tomorrow Foot x-ray with 1. No acute fracture or dislocation within the right foot. 2. Marked dorsal forefoot soft tissue swelling Evaluated by peer counselor Dr. Torres who has concern for compartment syndrome and will take patient to the OR emergently Keep n.p.o., IV fluids, analgesics, fall precautions Trauma to left thigh last week Endorses a separate trauma last week when cow kicked his left thigh, which has become progressively more painful Will obtain a CT of left leg without contrast for further work-up Ankylosing spondylitis Inflammatory polyarthritis Follows with Dr. Kathleen, rheum Missed weekly dose of Enbrel earlier today, schedule to receive tomorrow Hypertension Slightly elevated in setting of pain. Continue lisinopril-hctz in AM Depression Bipolar disorder 1 Not currently on medications. Mood is stable. Has not taken Zoloft for 3 months History of seizures Reports history of febrile seizures in the past. Is not on any AED DVT Ppx: SCDs for now Code status: FULL PCP: Patricia Dispo: Admit to med/surg Patient seen in collaboration with Dr. Burt. Please see addendum. History of Present Illness Primary Care Provider: Luc Saldaña DO This is a 46-year-old male with PMH of hypertension, ankylosing spondylitis, inflammatory polyarthritis, history of bipolar disorder and depression, seizure disorder and other medical problems listed below who presents with R foot pain after 1,800 lb bull stepped on his foot around 1400. Presented to ED for R foot pain and swelling. Now having feelings of numbness and burning pain in R foot as well. Of note, was also kicked in back of L upper leg last week by a cow and continues to have pain and bruising in L front thigh with difficulty walking. Having intermittent numbness and pain in L leg. Denies fever, chills, headache, CP, SOB, N/V, abdominal pain, dysuria, diarrhea or constipation. Allergies Allergy/AdvReac Type Severity Reaction Status Date / Time No Known Allergies Allergy Verified 04/18/22 18:11 Home Medications Medication Instructions Recorded Confirmed Type lisinopril 10 1 tab PO DAILY 08/08/18 04/18/22 History mg-hydrochlorothiazide 12.5 mg tablet pantoprazole 40 mg tablet,delayed 40 mg PO DAILY PRN 08/08/18 04/18/22 History release HEARTBURN/INDIGESTION ondansetron HCl 4 mg tablet 4 mg PO Q8H PRN NAUSEA/VOMITING 07/15/21 04/18/22 History etanercept 50 mg/mL (1 mL) 50 mg subcut WK 04/18/22 04/18/22 History subcutaneous pen injector (Enbrel SureClick) famotidine 20 mg tablet 20 mg PO BID PRN 04/18/22 04/18/22 History HEARTBURN/INDIGESTION naproxen 500 mg tablet 500 mg PO BID PRN Pain 04/18/22 04/18/22 History Past Med/Surg History Medical History Ankylosing spondylitis Bipolar 1 disorder Diverticulosis Hypertension Kidney stones Seizures Ventral hernia with bowel obstruction Surgical History H/O oral surgery History of bowel resection Family History Other Cancer Hypertension Social History Smoking Status: Never smoker Preferred Language: Nepali Feels Safe at Home: Yes Review of Systems Review of Systems: At least ten systems reviewed and negative except as noted in the HPI. Physical Exam Physical Exam: Please see Dr. Burt's addendum for physical exam. Results & Data Results & Data ([facility]) Vital Signs (Past 12 Hours) Vital Signs Temp Pulse Resp BP Pulse Ox O2 Del Method 04/18/22 18:27 76 19 197/101 H 98 Room Air 04/18/22 17:20 100 Room Air 10/25/22 15:59 18 96 Room Air 04/18/22 15:01 36.7 C 82 18 180/92 H 94 Room Air Laboratory Results Short CBC 04/18/22 Range/Units 17:15 WBC 6.17 (4.8-10.8) K/ul Hgb 14.2 (14.0-18.0) g/dl Hct 40.3 (40.1-51.0) % Plt Count 239 (130-400) K/uL BMP 04/18/22 17:15 Sodium 138 Potassium 3.7 Chloride 104 Carbon Dioxide 26 BUN 15 Creatinine 0.79 Glucose 87 Calcium 9.2 Cardiac Enzymes 04/18/22 Range/Units 17:15 Total Creatine Kinase 136 (30-223) U/L Liver Function 04/18/22 Range/Units 17:15 Total Bilirubin 0.7 (0.2-1.0) mg/dl AST 23 (13-39) U/L ALT 26 (7-52) U/L Alkaline Phosphatase 65 (34-104) U/L Albumin 4.3 (3.4-5.0) gm/dl Diagnostic Findings Foot X-Ray 04/18/22 15:42 XR foot RT min 3V routine CLINICAL HISTORY: top of foot stepped on by cow COMPARISON: CT of the right ankle January 11, 2012. FINDINGS: Alignment of the right foot is anatomic. Tarsometatarsal joints are intact. No acute fracture is identified. Lateral view demonstrates marked dorsal forefoot soft tissue swelling. No osseous lesions are noted. Mild posterior calcaneal spurring is present. IMPRESSION: 1. No acute fracture or dislocation within the right foot. 2. Marked dorsal forefoot soft tissue swelling. ACT 112: Negative or not required by law. Electronically signed by: Shaq Luu M.D. 04/18/2022 5:00 PM Supervising Physician Co-Signing Physician Notes Patient is a 46-year-old male with history of hypertension, ankylosing spondylitis and other medical problems presents with history of right foot pain after been stepped by a ball on his right foot today afternoon. Patient states having significant pain associated with some numbness of his right foot and has been having worsening swelling while in ED. He also states having a similar trauma by a cow to his left lower extremity few days ago. Please review HPI for complete details of presentation. Blood work is reviewed and is unremarkable. COVID screen is negative. Right foot x-ray showed no acute fractures or dislocation within the right foot but showed mild dorsal forefoot soft tissue swelling. Patient was thought to have right foot crush injury and was concerned to have compartment syndrome and so was scheduled for fasciotomy of the right foot today. Physical Exam: Vitals signs as noted above General Appearance:Well built and nourished, no apparent distress Head: normocephalic, Atraumatic Eyes: normal inspection, EOMI Neck: supple, Trachea midline Respiratory/Chest: Normal breath sounds, CTA, No accessory muscle use Cardiovascular: S1, S2, No murmur Abdomen/GI:Soft, Non tender, Bowel sounds present Extremities/Musculoskeletal:normal inspection, R foot swollen, tender, decreased ROM, Left thigh ecchymosis Neurologic/Psych:AAOX3, grossly no focal neurological deficits Skin: normal color, warm I personally reviewed the record. Patient is interviewed and examined at bedside. Patient's care is coordinated with Rebecca Benjamin PA-C. Please refer to the documentation above for details of patient's presentation and for discussion of other issues. (1) Crush injury of right foot Encounter type: initial encounter Qualified Code(s): S97.81XA - Crushing injury of right foot, initial encounter
--- NOTE | 2022-04-18 18:50 | Orthopedic Consultation ---
Date of Consultation April 18, 2022 Assessment & Plan (1) Crush injury of right foot: Plan Patient seen, evaluated, and treated. I reviewed compartment syndrome with Patient and need for fasciotomy of right foot. I reviewed procedure in detail as well as postoperative recovery. I discussed expectations and patient's current weightbearing status. All questions answered. I have discussed procedure in detail as well as postoperative recovery. All potential risks, benefits, complications, alternatives, rehab, potential for incomplete relief of symptoms, need for further surgery, DVT, PE, , persistent pain, swelling, scarring, weakness, neurovascular, wound complication s and potential for amputations were discussed with patient. Unwanted outcomes such as, but not limited to were reviewed including under correction, overcorrection, return of deformity, infection. All questions were answered. Patient has decided to proceed with procedure as indicated. History of Present Illness History of Present Illness Patient is a 46-year-old male who is seen in [facility] ED for severe right foot pain right foot. Patient reports an 1800 pound bull accidentally stepped on his foot this afternoon. The pain is becoming very severe now and he feels like his foot was cut off. He notes burning severe pain to right foot. Patient has been unable to get his pain under control while in ED and has received hydrocodone and Dilaudid. Patient is to be evaluated for compartment syndrome of right foot. Allergies Allergy/AdvReac Type Severity Reaction Status Date / Time No Known Allergies Allergy Verified 04/18/22 18:11 Home Medications Medication Instructions Recorded Confirmed Type lisinopril 10 1 tab PO DAILY 08/08/18 04/18/22 History mg-hydrochlorothiazide 12.5 mg tablet pantoprazole 40 mg tablet,delayed 40 mg PO DAILY PRN 08/08/18 04/18/22 History release HEARTBURN/INDIGESTION ondansetron HCl 4 mg tablet 4 mg PO Q8H PRN NAUSEA/VOMITING 07/15/21 04/18/22 History etanercept 50 mg/mL (1 mL) 50 mg subcut WK 04/18/22 04/18/22 History subcutaneous pen injector (Enbrel SureJoãoick) famotidine 20 mg tablet 20 mg PO BID PRN 04/18/22 04/18/22 History HEARTBURN/INDIGESTION naproxen 500 mg tablet 500 mg PO BID PRN Pain 04/18/22 04/18/22 History Patient History Medical History Ankylosing spondylitis Bipolar 1 disorder Diverticulosis Hypertension Kidney stones Seizures Ventral hernia with bowel obstruction Surgical History H/O oral surgery History of bowel resection Family History Other Cancer Hypertension Social History Smoking Status: Never smoker Preferred Language: Welsh Feels Safe at Home: Yes Review of Systems Review of Systems: All systems reviewed & are unremarkable except as noted in HPI & below Physical Exam Constitutional: well developed, well nourished and + acute distress Eyes: PERRL, conjunctivae normal, anicteric sclerae ENMT: external ear and nose normal, oropharynx normal Respiratory: normal respiratory effort, lungs clear to auscultation Cardiovascular: Pedal pulses non palpable. Edema right foot Musculoskeletal: Pain out of proportion to right foot Skin: Intact Neurologic: Epicritic sensation intact. Psychiatric: Orientation: alert and oriented x 3 Results & Data ([facility]) Vital Signs (Past 12 Hours) Vital Signs Temp Pulse Resp BP Pulse Ox O2 Del Method 04/18/22 18:27 76 19 197/101 H 98 Room Air 04/18/22 17:20 100 Room Air 04/18/22 15:59 18 96 Room Air 04/18/22 15:01 36.7 C 82 18 180/92 H 94 Room Air (1) Crush injury of right foot Encounter type: initial encounter Qualified Code(s): S97.81XA - Crushing injury of right foot, initial encounter
[2022-04-18] MEDS ORDERED: ceFAZolin 2,000 MG/15 ML IV PUSH IV ONE (19:04)
[2022-04-18] MEDS ORDERED: LIDOCAINE 1% LOCAL 20 ML VIAL ONE (19:14)
[2022-04-18] MEDS ORDERED: BUPIVACAINE 0.5 % 5 MG/1 ML MPF 30ML VIAL ONE (19:14)
[2022-04-18] MEDS ORDERED: FAMOTIDINE 20 MG TAB PO PRN (19:17)
[2022-04-18] MEDS ORDERED: PANTOprazole 40 MG TAB PO PRN (19:17)
--- NOTE | 2022-04-18 20:17 | History & Physical Bridge Note ---
Date of Service April 18, 2022 History & Physical Bridge Note I have examined the patient, reviewed the History & Physical and in the interval since the performance of the History & Physical I have noted the following changes of clinical significance: no changes noted
--- NOTE | 2022-04-18 20:20 | Operative Report ---
Post Operative Report Pre & Post Diagnosis Operation Date: 04/18/22 19:00 Pre-Op Diagnosis: Crush injury of right foot Post-Op Diagnosis: Crush injury of right foot I identified the patient and participated in the time-out.: Yes Procedure Operation Date: 04/18/22 19:00 Actual Procedures p Fasiotomy Right Foot(Right) - Rigoberto Torres DPM, MS Surgeon Rigoberto Torres DPM, MS Channeler Runner None Estimated Blood Loss 0 Findings Consistent with Post-Op Diagnosis Compartment syndrom Right foot Specimens None Anesthesia Type General Description of Procedure History of present illness: Patient is a 46-year-old male who was seen after crush injury today to right foot. Patient notes injury when 1800lbs bull stepped on right foot. Patient presented to [facility] ED where compartment syndrome was identified. Patient is in need of immediate fasciotomy to right foot. Discussed procedure in detail as well as postoperative recovery. All potential risks, benefits, complications, alternatives, rehab, potential for incomplete relief of symptoms, need for further surgery, DVT, PE, , persistent pain, swelling, scarring, weakness, neurovascular, wound complications and potential for amputations were discussed with patient. Unwanted outcomes such as, but not limited to were reviewed including under correction, overcorrection, return of deformity, infection. All questions were answered. Patient has decided to proceed with procedure as indicated. Preoperative diagnosis: Right foot compartment syndrome Postoperative diagnosis: Same Name of operation: RIght foot fasciotomy Surgeon: Dr. Torres Channeler Runner: None Anesthesia: General Estimated blood loss: Minimal Procedure in detail: Under mild sedation the patient was brought in the operating room placed on the operating table in supine position. Following IV sedation, local anesthesia was obtained about the right lateral ray utilizing 10 cc of a 1:1 mixture of 1% lidocaine plain and 0.5% Marcaine plain. A wick catheter recorded elevated intracompartimental pressure of right foot requiring immediate fasciotomy. A Pneumatic ankle tourniquet was then placed about the patient's right ankle. The foot was then prepped, scrubbed, and draped, in the usual aseptic manner. An Esmarch bandage utilized examining the patient's right foot and the pneumatic ankle tourniquet was inflated. Utilizing a sharp, sterile, 15 blade, an incision was placed over the second and fourth metatarsals. Utilizing dissection forceps and lesley pick ups the dorsal fascia of each interosseous compartment was opened longitudinally, muscle strip from medial fascia in first interosseous compartment, split adductor compartment. The 1st and 2nd interosseous, medial, and deep central compartment are released. The 3rd and 4th interosseous, lateral, superficial and middle central compartments are released. Copious amounts of sterile normal saline was utilized to flush the wound. The incision was dressed with Adaptic followed by sterile compressive dressing consisting of 4 x 4's and Wendy. The pneumatic ankle tourniquet was deflated and a prompt hyperemic response was noted to all digits of the right foot. An Prakash wrap was then applied. Patient tolerated procedure and anesthesia well. He was transferred to recovery room with vital signs stable and vascular status intact all toes of the right foot. Following a period of Postoperative monitoring the patient will be readmitted to the floor resuming pre-operative orders. Patient will require delayed primary closure possible skin graft. Contact Dr. Torres for all postoperative care or if any problems arise. I attest to the content of the Intraoperative Record and any orders documented therein. Any exceptions are noted below.
[2022-04-18] MEDS: fentaNYL citrate 100 MCG/2 ML VIAL IV PRN ×2 (20:26→20:31)
--- NOTE | 2022-04-18 20:42 | Anesthesiology Progress Note ---
Date of Service April 18, 2022 Anesthesia Post Procedure Vital Signs Vital Signs: Temp Pulse Pulse Pulse Resp BP BP 04/18/22 20:30 75 20 04/18/22 20:20 84 18 04/18/22 20:10 92 H 18 04/18/22 20:03 97.7 F 101 H 17 04/18/22 18:50 98.1 F 77 20 155/90 H 04/18/22 18:27 76 19 197/101 H 04/18/22 17:20 04/18/22 15:59 18 04/18/22 15:01 98.1 F 82 18 180/92 H BP Pulse Ox O2 Del Method O2 Flow Rate 04/18/22 20:30 122/98 97 Room Air 04/18/22 20:20 143/83 H 100 Oxymask 4 04/18/22 20:10 138/87 100 Oxymask 6 04/18/22 20:03 142/94 H 97 Oxymask 6 04/18/22 18:50 99 Room Air 04/18/22 18:27 98 Room Air 04/18/22 17:20 100 Room Air 04/18/22 15:59 96 Room Air 04/18/22 15:01 94 Room Air Pain Intensity Right Ankle: Pain Intensity: 6 Transfer of Care Handoff Completed per policy Notes Mental Status: alert / awake / arousable and participated in evaluation Patient Amnestic to Procedure: Yes Nausea / Vomiting: adequately controlled Pain: adequately controlled Airway Patency, RR, SpO2: stable & adequate BP & HR: stable & adequate Hydration State: stable & adequate Anesthetic Complications: no major complications apparent and Pt Satisfied with anesthetic care
[2022-04-18] MEDS ORDERED: ACETAMINOPHEN 325 MG TAB PO PRN (21:37)
[2022-04-18] MEDS ORDERED: POLYETHYLENE (MIRALAX) 17 GM PACK PO PRN (21:37)
[2022-04-18] MEDS ORDERED: SODIUM CHLORIDE 0.9% 1000ML 1,000 ML IV SCH (21:37)
[2022-04-18] MEDS ORDERED: HYDROmorphone INJ 0.5 MG/0.5 ML SYR ONE (21:55)
[2022-04-19] MEDS: Patient's HEIGHT &/or WEIGHT Needed SCH ×2 (01:34→03:07)
[2022-04-19] MEDS: HYDROmorphone INJ 0.5 MG/0.5 ML SYR IV PRN ×4 (03:40→15:57)
--- NOTE | 2022-04-19 06:56 | CT Scan Report ---
CT femur LT wo con HISTORY: 46 years-old Male Trauma to posterior thigh 1 week ago acute trauma of the left thigh COMPARISON: CT abdomen and pelvis 07/15/2021 TECHNIQUE: Multiple axial CT images of the left femur were obtained without the use of IV contrast. A dose lowering technique was used consistent with the principals of MICHELINE. FINDINGS: The prostate is mildly enlarged. Small fat filled inguinal hernias. Pelvic basin phleboliths. Probabl e small left hydrocele. No acute intrapelvic abnormality identified. Mild amount of subcutaneous varicosities of the bilateral thighs. No intramuscular hematoma. There is mild anterior subcutaneous edema of the knee. There is mild lateral tilt of the patella within the t rochlea. No acute fracture, dislocation, avascular necrosis or significant osteoarthritis. Minimal ma rginal spurring of the left hip and knee. No large hip or knee joint effusion identified. IMPRESSION: 1. No acute fracture or dislocation. 2. Mild nonspecific subcutaneous edema of the anterior knee. No intramuscular hematoma. ACT 112: Negative or not required by law. The above report was generated using voice recognition software. It may contain grammatical, syntax o r spelling errors. Electronically signed by: Ryan Mejia M.D. 04/19/2022 6:54 AM
--- NOTE | 2022-04-19 07:35 | Hospitalist Progress Note ---
Date of Service April 19, 2022 Assessment & Plan (1) Crush injury of right foot: (2) Ankylosing spondylitis: (3) Bipolar 1 disorder: (4) Hypertension: (5) Seizures: Plan This is a 46-year-old male with PMH of hypertension, ankylosing spondylitis, inflammatory polyarthritis, history of bipolar disorder and depression, seizure disorder and other medical problems listed below who presents with R foot pain after 1,800 lb bull stepped on his foot this afternoon. Crush injury right foot Hemodynamically stable Pain intractable despite multiple rounds of pain medication in ED Initial CK WNL. Repeat normal as well. Foot x-ray with 1. No acute fracture or dislocation within the right foot. 2. Marked dorsal forefoot soft tissue swelling Evaluated by cardiologist Dr. Torres - pt now s/p emergent fasciotomy for compartment syndrome (04/18) Plan for delayed closure today (04/19) Keep n.p.o., IV fluids, analgesics, fall precautions Trauma to left thigh last week Endorses a separate trauma last week when cow kicked his left thigh, which has become progressively more painful CT of left leg obtained -1. No acute fracture or dislocation. 2. Mild nonspecific subcutaneous edema of the anterior knee. No intramuscular h ematoma. Pt reports pain and on and off numbness was kicked to posterior thigh, has ecchymosis anteriorly will discuss further w/ orthopedics Ankylosing spondylitis Inflammatory polyarthritis Follows with Dr. Kathleen, rheum Missed weekly dose of Enbrel earlier Hypertension Slightly elevated in setting of pain. Continue lisinopril-hctz in AM Depression Bipolar disorder 1 Not currently on medications. Mood is stable. Has not taken Zoloft for 3 months History of seizures Reports history of febrile seizures in the past. Is not on any AED DVT Ppx: SCDs for now Code status: FULL PCP: Dr. Gomez Dispo: med/surg Admission and Anticipated Discharge Date Admission Date: April 18, 2022 Subjective Pt seen in follow up of R foot crush injury and compartment syndrome, s/p fasciotomy Plan for delayed closure today Currently lying in bed in no acute distress No fevers, chills, chest pain, shortness of breath Reports also some pain and numbness of left thigh, patient was kicked by cattle in posterior thigh about a week ago Review of Systems Review of Systems: All systems reviewed & are unremarkable except as noted in Subjective Physical Exam Physical Exam: General Appearance:Well built and nourished, no apparent distress Head: normocephalic, Atraumatic Eyes: normal inspection, EOMI Neck: supple, Trachea midline Respiratory/Chest: Normal breath sounds, CTA, No accessory muscle use Cardiovascular: S1, S2, No murmur Abdomen/GI:Soft, Non tender, Bowel sounds present Extremities/Musculoskeletal:normal inspection, R foot swollen, tender, decreased ROM, Left thigh ecchymosis Neurologic/Psych:AAOX3, grossly no focal neurological deficits Skin: normal color, warm Results & Data Results & Data ([facility]) Vital Signs (Past 12 Hours) Vital Signs Temp Pulse Pulse Pulse Resp BP BP 04/19/22 04:15 36.4 C L 67 18 122/76 04/19/22 00:20 36.6 C 67 16 134/68 04/18/22 22:20 36.4 C L 69 16 130/75 04/18/22 23:20 36.4 C L 68 16 138/78 04/18/22 21:50 36.3 C L 69 16 132/77 04/18/22 21:10 77 20 116/51 L 04/18/22 21:00 76 18 122/74 04/18/22 20:50 82 22 135/86 04/18/22 20:40 36.6 C 80 20 137/84 04/18/22 20:30 75 20 122/98 04/18/22 20:20 84 18 143/83 H 04/18/22 20:10 92 H 18 138/87 04/18/22 20:03 36.5 C 101 H 17 142/94 H Pulse Ox O2 Del Method O2 Flow Rate 04/19/22 04:15 95 Room Air 04/19/22 00:20 98 Room Air 04/18/22 22:20 94 Room Air 04/18/22 23:20 96 Room Air 04/18/22 21:50 98 Room Air 04/18/22 21:10 94 Room Air 04/18/22 21:00 94 Room Air 04/18/22 20:50 94 Room Air 04/18/22 20:40 97 Room Air 04/18/22 20:30 97 Room Air 04/18/22 20:20 100 Oxymask 4 04/18/22 20:10 100 Oxymask 6 04/18/22 20:03 97 Oxymask 6 Laboratory Results 04/19/22 04/19/22 04/18/22 Range/Units 07:05 07:05 19:08 WBC 6.03 (4.8-10.8) K/ul RBC 4.26 L (4.63-6.08) M/uL Hgb 12.8 L (14.0-18.0) g/dl Hct 36.8 L (40.1-51.0) % MCV 86.4 (80.0-100.0) fL MCH 30.0 (25.0-34.0) pg MCHC 34.8 (32.0-36.0) g/dL RDW Std Deviation 39.5 (36.4-46.3) fL RDW Coeff of Tiffani 12.7 (11.5-14.5) % Plt Count 175 (130-400) K/uL MPV 9.1 L (9.4-12.4) fL Sodium 138 (136-145) mmol/L Potassium 3.7 (3.5-5.1) mmol/L Chloride 106 (98-107) mmol/L Carbon Dioxide 28 (21-32) mmol/L Anion Gap 4 (3-11) BUN 12 (6-23) mg/dl Creatinine 0.73 (0.6-1.4) mg/dl Est Cr Clr Drug Dosing 169.5 Est GFR ( Amer) 128.0 ml/min Est GFR (Non-Af Amer) 110.5 ml/min BUN/Creatinine Ratio 16.4 (10-20) Glucose 87 (70-99(Fasting)) mg/dl Calcium 8.0 L (8.5-10.1) mg/dl Total Bilirubin (0.2-1.0) mg/dl AST (13-39) U/L ALT (7-52) U/L Alkaline Phosphatase (34-104) U/L Total Creatine Kinase 131 (30-223) U/L Total Protein (6.0-8.3) gm/dl Albumin (3.4-5.0) gm/dl Globulin (2.5-4.0) gm/dl Albumin/Globulin Ratio (0.9-2) SARS-CoV-2, RNA, NAAT NEGATIVE (NEGATIVE) 04/18/22 Range/Units 17:15 WBC (4.8-10.8) K/ul RBC (4.63-6.08) M/uL Hgb (14.0-18.0) g/dl Hct (40.1-51.0) % MCV (80.0-100.0) fL MCH (25.0-34.0) pg MCHC (32.0-36.0) g/dL RDW Std Deviation (36.4-46.3) fL RDW Coeff of Tiffani (11.5-14.5) % Plt Count (130-400) K/uL MPV (9.4-12.4) fL Sodium 138 (136-145) mmol/L Potassium 3.7 (3.5-5.1) mmol/L Chloride 104 (98-107) mmol/L Carbon Dioxide 26 (21-32) mmol/L Anion Gap 8 (3-11) BUN 15 (6-23) mg/dl Creatinine 0.79 (0.6-1.4) mg/dl Est Cr Clr Drug Dosing Not Reportable Est GFR ( Amer) 123.9 ml/min Est GFR (Non-Af Amer) 106.9 ml/min BUN/Creatinine Ratio 19.0 (10-20) Glucose 87 (70-99(Fasting)) mg/dl Calcium 9.2 (8.5-10.1) mg/dl Total Bilirubin 0.7 (0.2-1.0) mg/dl AST 23 (13-39) U/L ALT 26 (7-52) U/L Alkaline Phosphatase 65 (34-104) U/L Total Creatine Kinase 136 (30-223) U/L Total Protein 6.9 (6.0-8.3) gm/dl Albumin 4.3 (3.4-5.0) gm/dl Globulin 2.6 (2.5-4.0) gm/dl Albumin/Globulin Ratio 1.7 (0.9-2) SARS-CoV-2, RNA, NAAT (NEGATIVE) Medications Administered Current Inpatient Medications Acetaminophen (Acetaminophen 325 Mg Tab) 650 mg PO Q4H PRN PRN Reason: pain/fever Stop: 05/18/22 21:36 Famotidine (Famotidine 20 Mg Tab) 20 mg PO BID PRN PRN Reason: HEARTBURN/INDIGESTION Stop: 05/18/22 19:16 Lisinopril/HCTZ (Lisinopril/Hctz 10/12.5mg Tab) 1 tab PO DAILY [facility] Stop: 05/19/22 08:59 Hydromorphone HCl (Hydromorphone Inj 0.5 Mg/0.5 Ml Syr) 0.5 mg IV Q4H PRN PRN Reason: Severe Pain Stop: 05/02/22 21:36 Last Admin: 04/19/22 03:40 Dose: 0.5 mg Sodium Chloride (Nss 1000ml) 1,000 mls @ 100 mls/hr IV .Q10H NATHANAEL Stop: 04/19/22 07:36 Last Admin: 04/19/22 01:35 Dose: 100 mls/hr Miscellaneous (Etanercept [Enbrel Sureclick] 50 Mg/Ml ~ Order Awaiting Action) 1 each N/A QS NATHANAEL Stop: 05/19/22 00:00 Last Admin: 04/19/22 01:35 Dose: Not Given Pantoprazole Sodium (Pantoprazole 40 Mg Tab) 40 mg PO DAILY PRN PRN Reason: HEARTBURN/INDIGESTION Stop: 05/18/22 19:16 Polyethylene Glycol (Polyethylene (Miralax) 17 Gm Pack) 17 gm PO DAILY PRN PRN Reason: Constipation Stop: 05/18/22 21:36 (1) Crush injury of right foot Encounter type: initial encounter Qualified Code(s): S97.81XA - Crushing injury of right foot, initial encounter
[2022-04-19 07:36] LABS: Hematocrit (blood only) 36.8 % (40.1-51.0); Hemoglobin 12.8 g/dl (14.0-18.0); Mean Corpuscular Hgb Conc 34.8 g/dL (32.0-36.0); Mean Corpuscular Volume 86.4 fL (80.0-100.0); Mean Platelet Volume 9.1 fL (9.4-12.4); Platelet Count 175 K/uL (130-400); RDW Coefficient of Variation 12.7 % (11.5-14.5); RDW Standard Deviation 39.5 fL (36.4-46.3); Red Blood Count 4.26 M/uL (4.63-6.08); White Blood Count 6.03 K/ul (4.8-10.8)
[2022-04-19 08:01] LABS: BUN Creatinine Ratio 16.4 (10-20); Creatinine Clr Calc Pharmacy 169.5 ml/min; Est GFR (Non-African American) 110.5 ml/min; Potassium 3.7 mmol/L (3.5-5.1)
[2022-04-19] MEDS: LISINOPRIL/HCTZ 10/12.5MG TAB PO SCH (09:38)
[2022-04-19] MEDS ORDERED: ONDANSETRON INJ 2 MG/ML 2 ML VIAL IV PRN ×2 (10:26→17:28)
--- NOTE | 2022-04-19 14:31 | Anesthesiology Consultation ---
Date of Service April 19, 2022 Assessment & Plan (1) Encounter for pre-operative examination: Chart Review Chart Review: Acceptable Risk for Surgery History Surgery Operation Date: 04/18/22 19:00 Proposed Procedures p Fasiotomy Left Foot(Left) - Rigoberto Torres DPM, Operation Date: 04/19/22 07:00 Proposed Procedures p Delayed Primary Closure Foot Right - Rigoberto Torres DPM, MS Height/Weight Height: 6 ft 1 in Weight: 119.7 kg Allergies Allergy/AdvReac Type Severity Reaction Status Date / Time No Known Allergies Allergy Verified 04/18/22 18:11 Medications Home Medications Medication Instructions Recorded Confirmed Last Taken lisinopril 10 1 tab PO DAILY 08/08/18 04/18/22 04/18/22 mg-hydrochlorothiazide 12.5 mg tablet pantoprazole 40 mg tablet,delayed 40 mg PO DAILY PRN 08/08/18 04/18/22 07/15/21 release HEARTBURN/INDIGESTION ondansetron HCl 4 mg tablet 4 mg PO Q8H PRN NAUSEA/VOMITING 07/15/21 04/18/22 Unknown etanercept 50 mg/mL (1 mL) 50 mg subcut WK 04/18/22 04/18/22 04/11/22 subcutaneous pen injector (Enbrel SureClick) famotidine 20 mg tablet 20 mg PO BID PRN 04/18/22 04/18/22 Unknown HEARTBURN/INDIGESTION naproxen 500 mg tablet 500 mg PO BID PRN Pain 04/18/22 04/18/22 Unknown Active Medications Generic Name Dose Route Start Last Admin Trade Name Danisha PRN Reason Stop Dose Admin Lisinopril/HCTZ 1 tab 04/19/22 09:00 04/19/22 09:38 Lisinopril/Hctz 10/12.5mg Tab PO 05/19/22 08:59 1 tab DAILY NATHANAEL Administration Hydromorphone HCl 0.5 mg 04/18/22 21:37 04/19/22 12:24 Hydromorphone Inj 0.5 Mg/0.5 Ml Syr IV 05/02/22 21:36 0.5 mg Q4H PRN Administration Severe Pain Miscellaneous 1 each 04/19/22 00:00 04/19/22 09:38 Etanercept [Enbrel Sureclick] 50 Mg/Ml ~ Order Awaiting Action N/A 05/19/22 00:00 Not Given QS NATHANAEL Ondansetron HCl 4 mg 04/19/22 10:26 04/19/22 10:41 Ondansetron Inj 2 Mg/Ml 2 Ml Vial IV 05/19/22 10:25 4 mg Q6H PRN Administration Nausea And Vomiting NPO Date Last Intake of Fluids: 04/18/22 Time Last Intake of Fluids: 12:00 Date Last Intake of Solids: 04/18/22 Time Last Intake of Solids: 11:00 Past Medical History Medical History Ankylosing spondylitis Bipolar 1 disorder Diverticulosis Hypertension Kidney stones Seizures Ventral hernia with bowel obstruction Past Family History Family History Other Cancer Hypertension Past Surgical History Surgical History H/O oral surgery History of bowel resection Social History Smoking Status: Light tobacco smoker tobacco type: cigarettes Do You Dip or Chew Tobacco: No Hx Alcohol Use: Yes Alcohol type: beer alcohol intake frequency: holidays/special occasions only Hx Substance Use: No substance use type: does not use Physical Exam Vital Signs Last Vital Signs Temp 36.7 C 04/19/22 14:13 Pulse 67 04/19/22 14:13 Resp 16 04/19/22 14:13 BP 142/82 H 04/19/22 14:13 Pulse Ox 94 04/19/22 14:13 O2 Del Method 04/19/22 14:13 O2 Flow Rate 4 04/18/22 20:20 Testing Laboratory Results 04/19/22 07:05 04/19/22 07:05
[2022-04-19] MEDS ORDERED: LIDOCAINE 2% MPF LOCAL 5 ML VIAL INFIL ONE (17:12)
[2022-04-19] MEDS ORDERED: fentaNYL citrate 100 MCG/2 ML VIAL ONE (17:12)
[2022-04-19] MEDS ORDERED: PROPOFOL IV EMULSION 10 MG/ML 20 ML VIAL IV ONE ×2 (17:12→17:52)
[2022-04-19] MEDS ORDERED: MIDAZOLAM HCL 1 MG/ML 2ML VIAL ONE (17:12)
[2022-04-19] MEDS ORDERED: ONDANSETRON INJ 2 MG/ML 2 ML VIAL ONE (17:13)
[2022-04-19] MEDS ORDERED: DEXAMETHASONE SOD INJ 4 MG/ML VIAL ONE (17:13)
[2022-04-19] MEDS ORDERED: PROMETHAZINE HCL 12.5 MG in SODIUM CHLORIDE 0.9% 50 ML IV PRN (17:28)
[2022-04-19] MEDS ORDERED: ATROPINE SULFATE 0.1 MG/ML 10ML SYR IV PRN (17:28)
[2022-04-19] MEDS ORDERED: HYDROmorphone INJ 2 MG/ML SYR/VIAL IV PRN (17:28)
[2022-04-19] MEDS ORDERED: ePHEDrine sulfate 50 MG/ML AMP IV PRN (17:28)
[2022-04-19] MEDS ORDERED: fentaNYL citrate 100 MCG/2 ML VIAL IV PRN (17:28)
[2022-04-19] MEDS ORDERED: ceFAZolin 2,000 MG/15 ML IV PUSH IV ONE (17:30)
--- NOTE | 2022-04-19 17:33 | History & Physical Bridge Note ---
Date of Service April 19, 2022 History & Physical Bridge Note I have examined the patient, reviewed the History & Physical and in the interval since the performance of the History & Physical I have noted the following changes of clinical significance: no changes noted
[2022-04-19] MEDS ORDERED: LIDOCAINE 1% LOCAL 20 ML VIAL ONE (17:36)
[2022-04-19] MEDS ORDERED: BUPIVACAINE 0.5 % 5 MG/1 ML MPF 30ML VIAL ONE (17:36)
[2022-04-19] MEDS ORDERED: KETAMINE 50 MG/5 ML SYRINGE ONE (17:53)
--- NOTE | 2022-04-19 18:53 | Anesthesiology Progress Note ---
Date of Service April 19, 2022 Anesthesia Post Procedure Vital Signs Vital Signs: Temp Pulse Pulse Pulse Resp BP BP 04/19/22 18:41 36.5 C 75 14 142/81 H 04/19/22 17:12 36.9 C 62 18 140/85 04/19/22 14:13 36.7 C 67 16 142/82 H 04/19/22 11:28 36.7 C 65 17 124/82 04/19/22 07:40 36.5 C 66 17 108/63 04/19/22 04:15 36.4 C L 67 18 122/76 04/19/22 00:20 36.6 C 67 16 134/68 04/18/22 22:20 36.4 C L 69 16 130/75 04/18/22 23:20 36.4 C L 68 16 138/78 04/18/22 21:50 36.3 C L 69 16 132/77 04/18/22 21:10 77 20 116/51 L 04/18/22 21:00 76 18 122/74 04/18/22 20:50 82 22 135/86 04/18/22 20:40 36.6 C 80 20 137/84 04/18/22 20:30 75 20 122/98 04/18/22 20:20 84 18 143/83 H 04/18/22 20:10 92 H 18 138/87 04/18/22 20:03 36.5 C 101 H 17 142/94 H Pulse Ox O2 Del Method O2 Flow Rate 04/19/22 18:41 99 Room Air 04/19/22 17:12 95 04/19/22 14:13 94 Room Air 04/19/22 11:28 95 Room Air 04/19/22 07:40 96 Room Air 04/19/22 04:15 95 Room Air 04/19/22 00:20 98 Room Air 04/18/22 22:20 94 Room Air 04/18/22 23:20 96 Room Air 04/18/22 21:50 98 Room Air 04/18/22 21:10 94 Room Air 04/18/22 21:00 94 Room Air 04/18/22 20:50 94 Room Air 04/18/22 20:40 97 Room Air 04/18/22 20:30 97 Room Air 04/18/22 20:20 100 Oxymask 4 04/18/22 20:10 100 Oxymask 6 04/18/22 20:03 97 Oxymask 6 Pain Intensity Right Ankle: Pain Intensity: 7 Transfer of Care Handoff Completed per policy Notes Mental Status: alert / awake / arousable and participated in evaluation Patient Amnestic to Procedure: Yes Nausea / Vomiting: adequately controlled Pain: adequately controlled Airway Patency, RR, SpO2: stable & adequate BP & HR: stable & adequate Hydration State: stable & adequate Anesthetic Complications: no major complications apparent
--- NOTE | 2022-04-19 18:59 | Operative Report ---
Post Operative Report Pre & Post Diagnosis Operation Date: 04/18/22 19:00 Pre-Op Diagnosis: Crush injury of right foot Post-Op Diagnosis: Crush injury of right foot Operation Date: 04/19/22 07:00 Pre-Op Diagnosis: Crush injury of right foot Post-Op Diagnosis: Crush injury of right foot I identified the patient and participated in the time-out.: Yes Procedure Operation Date: 04/18/22 19:00 Actual Procedures p Fasiotomy Right Foot(Right) - Rigoberto Torres DPM, MS Operation Date: 04/19/22 07:00 Actual Procedures p Delayed Primary Closure Foot Right(Right) - Rigoberto Torres DPM, MS Surgeon Rigoberto Torres DPM, MS Saw Filer None Estimated Blood Loss 10 Findings Consistent with Post-Op Diagnosis consistent with post operative diagnosis Specimens None Complications None Description of Procedure History of present illness: Patient is a 46-year-old male who is status post right foot fasciotomy after crush injury. Patient notes initial injury when 1800lbs bull stepped on right foot. Patient is seen today for delayed primary closure to right foot. Discussed procedure in detail as well as postoperative recovery. All potential risks, benefits, complications, alternatives, rehab, potential for incomplete relief of symptoms, need for further surgery, DVT, PE, , persistent pain, swelling, scarring, weakness, neurovascular, wound complications and potential for amputations were discussed with patient. Unwanted outcomes such as, but not limited to were reviewed including under correction, overcorrection, return of deformity, infection. All questions were answered. Patient has decided to proceed with procedure as indicated. Preoperative diagnosis: Right foot compartment syndrome Postoperative diagnosis: Same Name of operation: Right foot delayed primary closure Surgeon: Dr. Torres Saw Filer: None Anesthesia: Local MAC Estimated blood loss: Minimal Procedure in detail: Under mild sedation the patient was brought in the operating room placed on the operating table in supine position. Following IV sedation, local anesthesia was obtained about the right lateral ray utilizing 10 cc of a 1:1 mixture of 1% lidocaine plain and 0.5% Marcaine plain. Two longitudinal dorsal medial and lateral fasciotomy incisions are present approximately 8cm in length and 1.5cm in width. Copious amounts of sterile normal saline was utilized to flush the wound. 3-0 nylon is utilized to re-approximate wounds in horizontal mattress suture technique with out incident. The incision was dressed with Adaptic followed by sterile compressive dressing consisting of 4 x 4's and Wendy. An Prakash wrap was then applied. Patient tolerated procedure and anesthesia well. He was transferred to recovery room with vital signs stable and vascular status intact all toes of the right foot. Following a period of Postoperative monitoring the patient will be readmitted to the floor resuming pre-operative orders. Contact Dr. Torres for all postoperative care or if any problems arise. I attest to the content of the Intraoperative Record and any orders documented therein. Any exceptions are noted below.
[2022-04-20] MEDS: HYDROmorphone INJ 0.5 MG/0.5 ML SYR IV PRN ×2 (01:08→05:12)
--- NOTE | 2022-04-20 06:36 | Orthopedic Progress Note ---
Date of Service April 20, 2022 Assessment & Plan (1) Crush injury of right foot: Plan Patient is to be dispensed CAMBOOT Patient is weight bearing as tolerated in controlled ankle motion boot. Dressing to remain clean, dry, intact. Patient ok for discharge per podiatry. Please call for office appointment, to be seen in 10-14 days. [phone] Thank you for allowing me to particiapte in the care of this Patient. Admission and Anticipated Discharge Date Admission Date: April 18, 2022 Subjective Patient status post Day#2 fasciotomy; Day#1 Delayed primary closure Review of Systems Review of Systems: Other Results & Data ([facility]) Vital Signs (Past 12 Hours) Vital Signs Temp Pulse Pulse Pulse Resp BP BP 04/19/22 20:50 04/19/22 20:50 04/20/22 02:35 36.7 C 68 16 121/70 04/19/22 22:10 36.4 C L 67 16 123/69 04/19/22 19:10 36.8 C 62 16 144/92 H 04/19/22 21:10 36.4 C L 73 18 136/75 04/19/22 20:10 36.6 C 69 18 155/92 H 04/19/22 19:40 36.3 C L 61 16 162/91 H 04/19/22 19:00 36.5 C 61 16 130/87 04/19/22 18:50 58 L 15 135/83 04/19/22 18:41 36.5 C 75 14 142/81 H Pulse Ox Pulse Ox O2 Del Method O2 Del Method 04/19/22 20:50 Room Air 04/19/22 20:50 94 Room Air 04/20/22 02:35 94 Room Air 04/19/22 22:10 95 Room Air 04/19/22 19:10 98 Room Air 04/19/22 21:10 92 Room Air 04/19/22 20:10 97 Room Air 04/19/22 19:40 95 Room Air 04/19/22 19:00 94 Room Air 04/19/22 18:50 95 Room Air 04/19/22 18:41 99 Room Air (1) Crush injury of right foot Encounter type: initial encounter Qualified Code(s): S97.81XA - Crushing injury of right foot, initial encounter
[2022-04-20 07:36] LABS: Hematocrit (blood only) 38.4 % (40.1-51.0); Hemoglobin 13.4 g/dl (14.0-18.0); Mean Corpuscular Hemoglobin 29.9 pg (25.0-34.0); Mean Corpuscular Hgb Conc 34.9 g/dL (32.0-36.0); Mean Corpuscular Volume 85.7 fL (80.0-100.0); Mean Platelet Volume 9.3 fL (9.4-12.4); Platelet Count 189 K/uL (130-400); RDW Coefficient of Variation 12.6 % (11.5-14.5); RDW Standard Deviation 38.9 fL (36.4-46.3); Red Blood Count 4.48 M/uL (4.63-6.08); White Blood Count 4.99 K/ul (4.8-10.8)
--- NOTE | 2022-04-20 07:43 | Hospitalist Progress Note ---
Date of Service April 20, 2022 Assessment & Plan (1) Crush injury of right foot: (2) Ankylosing spondylitis: (3) Bipolar 1 disorder: (4) Hypertension: (5) Seizures: Plan This is a 46-year-old male with PMH of hypertension, ankylosing spondylitis, inflammatory polyarthritis, history of bipolar disorder and depression, seizure disorder and other medical problems listed below who presents with R foot pain after 1,800 lb bull stepped on his foot this afternoon. Crush injury right foot Hemodynamically stable Pain intractable despite multiple rounds of pain medication in ED Initial CK WNL. Repeat normal as well. Foot x-ray with 1. No acute fracture or dislocation within the right foot. 2. Marked dorsal forefoot soft tissue swelling Evaluated by edger machine operator Dr. Torres - pt now s/p emergent fasciotomy for compartment syndrome (04/18) s/p delayed primary closure (04/19) DC recs: Patient is to be dispensed CAMBOOT Patient is weight bearing as tolerated in controlled ankle motion boot. Dressing to remain clean, dry, intact. Patient ok for discharge per podiatry. Please call for office appointment, to be seen in 10-14 days. [phone] Trauma to left thigh last week Endorses a separate trauma last week when cow kicked his left thigh, which has become progressively more painful CT of left leg obtained -1. No acute fracture or dislocation. 2. Mild nonspecific subcutaneous edema of the anterior knee. No intramuscular hematoma. Pt reports pain and on and off numbness was kicked to posterior thigh, has ecchymosis anteriorly discussed w/ orthopedics - plan for outpt follow up in 2 weeks, currently pt is improving Ankylosing spondylitis Inflammatory polyarthritis Follows with Dr. Kathleen, rheum Missed weekly dose of Enbrel earlier Hypertension Slightly elevated in setting of pain. Continue lisinopril-hctz Depression Bipolar disorder 1 Not currently on medications. Mood is stable. Has not taken Zoloft for 3 months History of seizures Reports history of febrile seizures in the past. Is not on any AED DVT Ppx: SCDs for now Code status: FULL PCP: Dr. Gomez Dispo: med/surg Admission and Anticipated Discharge Date Admission Date: April 18, 2022 Subjective Pt seen in follow up of R foot crush injury and compartment syndrome, s/p fasciotomy s/p delayed primary closure yesterday Currently lying in bed in no acute distress No fevers, chills, chest pain, shortness of breath Patient is inquiring about going home Review of Systems Review of Systems: All systems reviewed & are unremarkable except as noted in Subjective Physical Exam Physical Exam: General Appearance: Well built and nourished, no apparent distress Head: normocephalic, Atraumatic Eyes: normal inspection, EOMI Neck: supple Respiratory/Chest: Normal breath sounds, CTA, No accessory muscle use Cardiovascular: S1, S2, No murmur Abdomen/GI:Soft, Non tender, Bowel sounds present Extremities/Musculoskeletal:normal inspection, R foot in surgical dressings, Left thigh ecchymosis Neurologic/Psych:AAOX3, grossly no focal neurological deficits Skin: normal color, warm Results & Data Results & Data ([facility]) Vital Signs (Past 12 Hours) Vital Signs Temp Pulse Pulse Resp BP BP Pulse Ox 04/20/22 07:25 36.7 C 65 16 133/79 94 04/19/22 20:50 04/19/22 20:50 04/20/22 02:35 36.7 C 68 16 121/70 94 04/19/22 22:10 36.4 C L 67 16 123/69 95 04/19/22 21:10 36.4 C L 73 18 136/75 92 04/19/22 20:10 36.6 C 69 18 155/92 H 97 Pulse Ox O2 Del Method O2 Del Method 04/20/22 07:25 Room Air 04/19/22 20:50 Room Air 04/19/22 20:50 94 Room Air 04/20/22 02:35 Room Air 04/19/22 22:10 Room Air 04/19/22 21:10 Room Air 04/19/22 20:10 Room Air Laboratory Results 04/20/22 04/20/22 Range/Units 06:59 06:59 WBC 4.99 (4.8-10.8) K/ul RBC 4.48 L (4.63-6.08) M/uL Hgb 13.4 L (14.0-18.0) g/dl Hct 38.4 L (40.1-51.0) % MCV 85.7 (80.0-100.0) fL MCH 29.9 (25.0-34.0) pg MCHC 34.9 (32.0-36.0) g/dL RDW Std Deviation 38.9 (36.4-46.3) fL RDW Coeff of Tiffani 12.6 (11.5-14.5) % Plt Count 189 (130-400) K/uL MPV 9.3 L (9.4-12.4) fL Sodium 139 (136-145) mmol/L Potassium 4.0 (3.5-5.1) mmol/L Chloride 105 (98-107) mmol/L Carbon Dioxide 30 (21-32) mmol/L Anion Gap 4 (3-11) BUN 15 (6-23) mg/dl Creatinine 0.90 (0.6-1.4) mg/dl Est Cr Clr Drug Dosing 137.5 ml/min Est GFR ( Amer) 117.5 ml/min Est GFR (Non-Af Amer) 101.4 ml/min BUN/Creatinine Ratio 16.7 (10-20) Glucose 96 (70-99(Fasting)) mg/dl Calcium 8.4 L (8.5-10.1) mg/dl Phosphorus 3.7 (2.5-4.9) mg/dl Magnesium 2.1 (1.7-2.4) mg/dl Medications Administered Current Inpatient Medications Acetaminophen (Acetaminophen 325 Mg Tab) 650 mg PO Q4H PRN PRN Reason: pain/fever Stop: 05/18/22 21:36 Last Admin: 04/19/22 14:43 Dose: 650 mg Famotidine (Famotidine 20 Mg Tab) 20 mg PO BID PRN PRN Reason: HEARTBURN/INDIGESTION Stop: 05/18/22 19:16 Lisinopril/HCTZ (Lisinopril/Hctz 10/12.5mg Tab) 1 tab PO DAILY NATHANAEL Stop: 05/19/22 08:59 Last Admin: 04/19/22 09:38 Dose: 1 tab Hydromorphone HCl (Hydromorphone Inj 0.5 Mg/0.5 Ml Syr) 0.5 mg IV Q4H PRN PRN Reason: Severe Pain Stop: 05/02/22 21:36 Last Admin: 04/20/22 05:12 Dose: 0.5 mg Miscellaneous (Etanercept [Enbrel Sureclick] 50 Mg/Ml ~ Order Awaiting Action) 1 each N/A QS NATHANAEL Stop: 05/19/22 00:00 Last Admin: 04/19/22 23:16 Dose: Not Given Ondansetron HCl (Ondansetron Inj 2 Mg/Ml 2 Ml Vial) 4 mg IV Q6H PRN PRN Reason: Nausea And Vomiting Stop: 05/19/22 10:25 Last Admin: 04/19/22 10:41 Dose: 4 mg Pantoprazole Sodium (Pantoprazole 40 Mg Tab) 40 mg PO DAILY PRN PRN Reason: HEARTBURN/INDIGESTION Stop: 05/18/22 19:16 Polyethylene Glycol (Polyethylene (Miralax) 17 Gm Pack) 17 gm PO DAILY PRN PRN Reason: Constipation Stop: 05/18/22 21:36 (1) Crush injury of right foot Encounter type: initial encounter Qualified Code(s): S97.81XA - Crushing injury of right foot, initial encounter
[2022-04-20 08:11] LABS: BUN Creatinine Ratio 16.7 (10-20); Calcium 8.4 mg/dl (8.5-10.1); Creatinine Clr Calc Pharmacy 137.5 ml/min; Est GFR (African American) 117.5 ml/min; Est GFR (Non-African American) 101.4 ml/min; Magnesium 2.1 mg/dl (1.7-2.4); Phosphorus 3.7 mg/dl (2.5-4.9)
[2022-04-20] MEDS: LISINOPRIL/HCTZ 10/12.5MG TAB PO SCH (08:53)
--- NOTE | 2022-04-20 08:57 | Orthopedic Consultation ---
Date of Consultation April 20, 2022 Assessment & Plan (1) Contusion of left thigh: PT/OT Pain controlled p.o. medication Ice with easy wrap Weightbearing as tolerated with walker assistance on his left lower extremity. Knee and hip ROM encouraged. We will follow-up with him in our office in 2 weeks with NICK Rahman PA-C. With questions contact clinic at [phone] Supervising Physician Co-Signing Physician Notes I saw and examined the patient, reviewed his CT images, and formulated the above plan. This was the substantive portion of the consult. History of Present Illness Reason for Consultation: Left thigh pain/contusion Requesting Physician: Dr. Bob Peters Attending Physician: Joo Sharma MD History of Present Illness This 46-year-old male seen in consultation for left thigh pain after being kicked by a cow about 1 week ago. Patient is admitted to the hospital after being stepped on by a different cow a few days ago requiring him to undergo fasciotomy of his right foot. Patient states that the left thigh is much better than it had been however he still has bruising and tenderness over the medial thigh. States he has no difficulty bearing weight on the left lower extremity. He also denies any numbness or tingling. Allergies Allergy/AdvReac Type Severity Reaction Status Date / Time No Known Allergies Allergy Verified 04/18/22 18:11 Home Medications Medication Instructions Recorded Confirmed Type lisinopril 10 1 tab PO DAILY 08/08/18 04/18/22 History mg-hydrochlorothiazide 12.5 mg tablet pantoprazole 40 mg tablet,delayed 40 mg PO DAILY PRN 08/08/18 04/18/22 History release HEARTBURN/INDIGESTION ondansetron HCl 4 mg tablet 4 mg PO Q8H PRN NAUSEA/VOMITING 07/15/21 04/18/22 History etanercept 50 mg/mL (1 mL) 50 mg subcut WK 04/18/22 04/18/22 History subcutaneous pen injector (Enbrel SureClick) famotidine 20 mg tablet 20 mg PO BID PRN 04/18/22 04/18/22 History HEARTBURN/INDIGESTION oxycodone 5 mg tablet 5 mg PO Q4H PRN pain #14 tabs 04/20/22 Rx Patient History Medical History Ankylosing spondylitis Bipolar 1 disorder Diverticulosis Hypertension Kidney stones Seizures Ventral hernia with bowel obstruction Surgical History H/O oral surgery History of bowel resection Family History Other Cancer Hypertension Social History Smoking Status: Light tobacco smoker Second Hand Exposure: No; Do You Dip or Chew Tobacco: No; Hx Alcohol Use: Yes Alcohol type: beer Hx Substance Use: No Preferred Language: Welsh Communication Ability: Effective Brush Head Maker Required: No Beliefs That Will Affect Care: None marital status: Current Living Situation: Spouse Feels Safe at Home: Yes Safety Concerns: Feels Safe At This Time Assistive Devices: Cane, Walker and Wheelchair Review of Systems Review of Systems: All systems reviewed & are unremarkable except as noted in Subjective Physical Exam Physical Exam: Left lower extremity: Patient's quad strength is 5 out of 5. He is able to perform an active straight leg raise test. He has no difficulty extending his knee to 0 degrees or flexing to 140. Passive hip flexion 120 degrees causes no pain. He has no pain with external rotation to 50 degrees internal rotation to 20 degrees. He states that passive adduction seems to ease the pressure. There is notable edema and ecchymosis to the medial lateral aspect of the thigh. There is no defect of his quad tendon. There is no erythema, warmth or palpable bony deformity. He is neurovascularly intact in the left lower extremity. Results & Data ([facility]) Vital Signs (Past 12 Hours) Vital Signs Temp Pulse Pulse Resp BP BP Pulse Ox 04/20/22 07:25 36.7 C 65 16 133/79 94 04/20/22 02:35 36.7 C 68 16 121/70 94 04/19/22 22:10 36.4 C L 67 16 123/69 95 04/19/22 21:10 36.4 C L 73 18 136/75 92 O2 Del Method 04/20/22 07:25 Room Air 04/20/22 02:35 Room Air 04/19/22 22:10 Room Air 04/19/22 21:10 Room Air Diagnostic Findings Laboratory Results WBC 4.99 K/ul (4.8-10.8) 04/20/22 06:59 RBC 4.48 M/uL (4.63-6.08) L 04/20/22 06:59 Hgb 13.4 g/dl (14.0-18.0) L 04/20/22 06:59 Hct 38.4 % (40.1-51.0) L 04/20/22 06:59 MCV 85.7 fL (80.0-100.0) 04/20/22 06:59 MCH 29.9 pg (25.0-34.0) 04/20/22 06:59 MCHC 34.9 g/dL (32.0-36.0) 04/20/22 06:59 RDW Std Deviation 38.9 fL (36.4-46.3) 04/20/22 06:59 RDW Coeff of Tiffani 12.6 % (11.5-14.5) 04/20/22 06:59 Plt Count 189 K/uL (130-400) 04/20/22 06:59 MPV 9.3 fL (9.4-12.4) L 04/20/22 06:59 Immature Gran % (Auto) 0.3 % 04/18/22 17:15 Neut % (Auto) 51.4 % 04/18/22 17:15 Lymph % (Auto) 36.5 % 04/18/22 17:15 [place] % (Auto) 10.0 % 04/18/22 17:15 Eos % (Auto) 1.3 % 04/18/22 17:15 Baso % (Auto) 0.5 % 04/18/22 17:15 Neut # (Auto) 3.17 K/uL (1.4-6.5) 04/18/22 17:15 Lymph # (Auto) 2.25 K/uL (1.2-3.4) 04/18/22 17:15 [place] # (Auto) 0.62 K/uL (0.24-0.82) 04/18/22 17:15 Eos # (Auto) 0.08 K/uL (0-0.50) 04/18/22 17:15 Baso # (Auto) 0.03 K/uL (0-0.2) 04/18/22 17:15 Immature Gran # (Auto) 0.02 K/uL (0.00-0.02) 04/18/22 17:15 Sodium 139 mmol/L (136-145) 04/20/22 06:59 Potassium 4.0 mmol/L (3.5-5.1) 04/20/22 06:59 Chloride 105 mmol/L (98-107) 04/20/22 06:59 Carbon Dioxide 30 mmol/L (21-32) 04/20/22 06:59 Anion Gap 4 (3-11) 04/20/22 06:59 BUN 15 mg/dl (6-23) 04/20/22 06:59 Creatinine 0.90 mg/dl (0.6-1.4) 04/20/22 06:59 Est Cr Clr Drug Dosing 137.5 ml/min 04/20/22 06:59 Est GFR ( Amer) 117.5 ml/min 04/20/22 06:59 Est GFR (Non-Af Amer) 101.4 ml/min 04/20/22 06:59 BUN/Creatinine Ratio 16.7 (10-20) 04/20/22 06:59 Glucose 96 mg/dl (70-99(Fasting)) 04/20/22 06:59 Calcium 8.4 mg/dl (8.5-10.1) L 04/20/22 06:59 Phosphorus 3.7 mg/dl (2.5-4.9) 04/20/22 06:59 Magnesium 2.1 mg/dl (1.7-2.4) 04/20/22 06:59 Total Bilirubin 0.7 mg/dl (0.2-1.0) 04/18/22 17:15 AST 23 U/L (13-39) 04/18/22 17:15 ALT 26 U/L (7-52) 04/18/22 17:15 Alkaline Phosphatase 65 U/L (34-104) 04/18/22 17:15 Total Creatine Kinase 131 U/L (30-223) 04/19/22 07:05 Total Protein 6.9 gm/dl (6.0-8.3) 04/18/22 17:15 Albumin 4.3 gm/dl (3.4-5.0) 04/18/22 17:15 Globulin 2.6 gm/dl (2.5-4.0) 04/18/22 17:15 Albumin/Globulin Ratio 1.7 (0.9-2) 04/18/22 17:15 SARS-CoV-2, RNA, NAAT NEGATIVE (NEGATIVE) 04/18/22 19:08 Impressions Foot X-Ray 04/18/22 15:42 XR foot RT min 3V routine CLINICAL HISTORY: top of foot stepped on by cow COMPARISON: CT of the right ankle January 11, 2012. FINDINGS: Alignment of the right foot is anatomic. Tarsometatarsal joints are intact. No acute fracture is identified. Lateral view demonstrates marked dorsal forefoot soft tissue swelling. No osseous lesions are noted. Mild posterior calcaneal spurring is present. IMPRESSION: 1. No acute fracture or dislocation within the right foot. 2. Marked dorsal forefoot soft tissue swelling. ACT 112: Negative or not required by law. Electronically signed by: Shaq Luu M.D. 04/18/2022 5:[address] 04/18/22 21:37 CT femur LT wo con HISTORY: 46 years-old Male Trauma to posterior thigh 1 week ago acute trauma of the left thigh COMPARISON: CT abdomen and pelvis 07/15/2021 TECHNIQUE: Multiple axial CT images of the left femur were obtained without the use of IV contrast. A dose lowering technique was used consistent with the principals of ALARA. FINDINGS: The prostate is mildly enlarged. Small fat filled inguinal hernias. Pelvic basin phleboliths. Probable small left hydrocele. No acute intrapelvic abnormality identified. Mild amount of subcutaneous varicosities of the bilateral thighs. No intramuscular hematoma. There is mild anterior subcutaneous edema of the knee. There is mild lateral tilt of the patella within the trochlea. No acute fracture, dislocation, avascular necrosis or significant osteoarthritis. Minimal marginal spurring of the left hip and knee. No large hip or knee joint effusion identified. IMPRESSION: 1. No acute fracture or dislocation. 2. Mild nonspecific subcutaneous edema of the anterior knee. No intramuscular hematoma. ACT 112: Negative or not required by law. The above report was generated using voice recognition software. It may contain grammatical, syntax or spelling errors. Electronically signed by: Ryan Mejia M.D. 04/19/2022 6:54 AM
[2022-04-20] MEDS: HYDROmorphone HCL 2 MG TAB PO PRN ×2 (10:25→16:07)
[2022-04-20] MEDS ORDERED: MoRPHine SULFATE 2 MG/ML CARP IV STA (12:33)
--- NOTE | 2022-04-20 15:56 | Discharge Summary ---
Date of Service April 20, 2022 Admission HPI Per Admitting Provider This is a 46-year-old male with PMH of hypertension, ankylosing spondylitis, inflammatory polyarthritis, history of bipolar disorder and depression, seizure disorder and other medical problems listed below who presents with R foot pain after 1,800 lb bull stepped on his foot around 1400. Presented to ED for R foot pain and swelling. Now having feelings of numbness and burning pain in R foot as well. Of note, was also kicked in back of L upper leg last week by a cow and continues to have pain and bruising in L front thigh with difficulty walking. Having intermittent numbness and pain in L leg. Denies fever, chills, headache, CP, SOB, N/V, abdominal pain, dysuria, diarrhea or constipation. Admission Exam Per Admitting Provider General Appearance:Well built and nourished, no apparent distress Head: normocephalic, Atraumatic Eyes: normal inspection, EOMI Neck: supple, Trachea midline Respiratory/Chest: Normal breath sounds, CTA, No accessory muscle use Cardiovascular: S1, S2, No murmur Abdomen/GI:Soft, Non tender, Bowel sounds present Extremities/Musculoskeletal:normal inspection, R foot swollen, tender, decreased ROM, Left thigh ecchymosis Neurologic/Psych:AAOX3, grossly no focal neurological deficits Skin: normal color, warm Principal Diagnosis Right foot crush injury, compartment syndrome Left thigh contusion Discharge Exam General Appearance: Well built and nourished, no apparent distress Head: normocephalic, Atraumatic Eyes: normal inspection, EOMI Neck: supple Respiratory/Chest: Normal breath sounds, CTA, No accessory muscle use Cardiovascular: S1, S2, No murmur Abdomen/GI:Soft, Non tender, Bowel sounds present Extremities/Musculoskeletal:normal inspection, R foot in surgical dressings, Left thigh ecchymosis Neurologic/Psych:AAOX3, grossly no focal neurological deficits Skin: normal color, warm Discharge Data Allergies Allergy/AdvReac Type Severity Reaction Status Date / Time No Known Allergies Allergy Verified 04/18/22 18:11 Consultations 04/18/22 18:31 ED Decision to Admit Stat 04/18/22 18:46 Consult Podiatry Stat 04/20/22 08:00 Consult Orthopedic Surgery Routine Procedures Performed Operation Date: 04/18/22 19:00 Actual Procedures p Fasiotomy Right Foot(Right) - Rigoberto Torres DPM, MS Operation Date: 04/19/22 07:00 Actual Procedures p Delayed Primary Closure Foot Right(Right) - Rigoberto Torres DPM, MS Ordered Studies 04/18/22 21:37 CT leg [CT femur LT wo con] Routine FINDINGS: The prostate is mildly enlarged. Small fat filled inguinal hernias. Pelvic basin phleboliths. Probable small left hydrocele. No acute intrapelvic abnormality identified. Mild amount of subcutaneous varicosities of the bilateral thighs. No intramuscular hematoma. There is mild anterior subcutaneous edema of the knee. There is mild lateral tilt of the patella within the trochlea. No acute fracture, dislocation, avascular necrosis or significant osteoarthritis. Minimal marginal spurring of the left hip and knee. No large hip or knee joint effusion identified. IMPRESSION: 1. No acute fracture or dislocation. 2. Mild nonspecific subcutaneous edema of the anterior knee. No intramuscular hematoma. Hospital Course (1) Crush injury of right foot: (2) Ankylosing spondylitis: (3) Bipolar 1 disorder: (4) Hypertension: (5) Seizures: Plan This is a 46-year-old male with PMH of hypertension, ankylosing spondylitis, inflammatory polyarthritis, history of bipolar disorder and depression, seizure disorder and other medical problems listed below who presents with R foot pain after 1,800 lb bull stepped on his foot this afternoon. Crush injury right foot Hemodynamically stable Pain intractable despite multiple rounds of pain medication in ED Initial CK WNL. Repeat normal as well. Foot x-ray with 1. No acute fracture or dislocation within the right foot. 2. Marked dorsal forefoot soft tissue swelling Evaluated by brazing machine operator helper Dr. Torres - pt now s/p emergent fasciotomy for compartment syndrome (04/18) s/p delayed primary closure (04/19) DC recs: Patient is to be dispensed CAMBOOT Patient is weight bearing as tolerated in controlled ankle motion boot. Dressing to remain clean, dry, intact. Patient ok for discharge per podiatry. Please call for office appointment, to be seen in 10-14 days. [phone] Trauma to left thigh last week Endorses a separate trauma last week when cow kicked his left thigh, which has become progressively more painful CT of left leg obtained -1. No acute fracture or dislocation. 2. Mild nonspecific subcutaneous edema of the anterior knee. No intramuscular hematoma. Pt reports pain and on and off numbness was kicked to posterior thigh, has ecchymosis anteriorly discussed w/ orthopedics - plan for outpt follow up in 2 weeks, currently pt is improving Ankylosing spondylitis Inflammatory polyarthritis Follows with Dr. Kathleen, rheum Missed weekly dose of Enbrel earlier Hypertension Slightly elevated in setting of pain. Continue lisinopril-hctz Depression Bipolar disorder 1 Not currently on medications. Mood is stable. Has not taken Zoloft for 3 months History of seizures Reports history of febrile seizures in the past. Is not on any AED Total Time Total Time Spent Total Time Spent (In Minutes): 40 Discharge Plan Discharge Items Patient Disposition: Home - Self-Care Reason For Visit: R FOOT CRUSH INJURY Discharge Diagnosis: Right foot crush injury, compartment syndrome Left thigh contusion Condition on Discharge: Fair Activity: Per Instructions section Non-emergency contact: Primary Care Provider and Surgeon Call non-emergency contact if: you have any medication questions and your symptoms worsen Follow-up/Referrals: Luc Saldaña DO [Primary Care Provider] - (Date & Time 04/25/2022 1:00 PM Provider Luc Saldaña DO Department [facility] ) Diet: Regular Addtl Attending Provider Instructions: Follow up with the primary care doctor, the appointment was scheduled for you for April 25. For pain, take Tylenol 1000 mg 3 times a day, max dose 3000 mg a day. For more severe pain, take oxycodone 5 mg every 4 hours as needed, as prescribed Per orthopedics/ podiatry, Dr. Torres - Right foot use CAMBOOT weight bearing as tolerated in controlled ankle motion boot. Dressing to remain clean, dry, intact. - If the dressing becomes soiled or wet, dressing needs to be changed. You may do this at home or call our office to change dressings immediately. Please call for office appointment, to be seen in 10-14 days. Also call with any questions regarding your surgery and care for your foot. [phone] Orthopedics - regarding Left thigh contusion Ice with easy wrap Weightbearing as tolerated with walker assistance on his left lower extremity. Follow-up in our office in 2 weeks You may may see either Dr. Goel or TRACEY Pulido. With questions contact clinic at [phone] Pending Studies at Discharge: No Stand-Alone Forms: My [facility], Smoking Cessation Medications and DC Order Prescriptions: New oxycodone 5 mg tablet 5 mg PO Q4H PRN (Reason: pain) Qty: 14 0RF Continued pantoprazole 40 mg tablet,delayed release (DR/EC) 40 mg PO DAILY PRN (Reason: HEARTBURN/INDIGESTION) lisinopril-hydrochlorothiazide 10-12.5 mg tablet 1 tab PO DAILY ondansetron HCl 4 mg tablet 4 mg PO Q8H PRN (Reason: NAUSEA/VOMITING) famotidine 20 mg Tablet 20 mg PO BID PRN (Reason: HEARTBURN/INDIGESTION) Enbrel SureClick 50 mg/mL (1 mL) Pen Injector 50 mg SUBCUT WK Rx Instructions: TAKES ON TUESDAYS Discontinued naproxen 500 mg Tablet 500 mg PO BID PRN (Reason: Pain) Discharge Orders: Discharge Order (Routine); Ordered 04/20/22 Ordered By: Joo Sharma Admission Data Admit Date/Time: 04/18/22 18:46 Attending Provider: Joo Sharma Admit Provider: Elan Burt Primary Care Provider: Luc Saldaña Other Providers: Elan Burt ; Rigoberto Torres ; Bob Peters
== END 2022-04-20 16:15 | disposition home or self-care (01) | DRG 908 ==
LOC: ED 14:34 → OR 18:27 → SUATTDRO 18:46 → 3W 18:46